=== PATIENT | female | born 1975 | race Caucasian/White ===

== ENCOUNTER → 2023-05-18 10:52 | Outpatient (BNVA) | payer MEDICAID, SELFPAY | PROVIDERS: Visit Provider Physician Assistant ==

== ENCOUNTER 2023-06-15 10:28 | Outpatient (REF) | payer OTHER, SELFPAY ==
[2023-06-19 16:42] LABS: H Pylori Breath Test Negative (Negative)
== END 2023-06-15 10:29 | disposition home or self-care (01) ==
LOC: HO.LNP 10:28
PROVIDERS: Visit Provider Physician Assistant Surgical
DX: E66.01 Morbid (severe) obesity due to excess calories (principal)
CPT/HCPCS: 83013; 99202; 99211

== ENCOUNTER 2023-06-15 10:28 | Outpatient (AMB) | payer OTHER, SELFPAY ==
--- NOTE | 2023-06-15 10:43 | MHC.OFFVISWM ---
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 She heard about our program from her PCP. Her goal is to lose weight and achieve a healthy lifestyle. She reports first being concerned about her weight about 2 years ago, highest weight to date was 227. Her initial weight on presentation to the [facility] clinic on 05/18/23 was 227.4 pounds (entered in error as 220.4) with a BMI of 40.3. Current weight is 215.6 pounds with a BMI of 38.2. She has tried multiple methods of weight loss including fad diets without permanent results. She lives alone. 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 She wakes at:?5 am, and goes to bed at?10 pm. Dinner is at 430 pm. Breakfast: 2 HB eggs w bread or skip AM snack: skip Lunch: skip PM snack: nuts Dinner: rice, beans, chicken After dinner: skip Other snacks: ice cream Liquids: 64 oz water, 6 cans coke daily, rare juice Alcohol/marijuana/tobacco intake: none Exercise: walking, no home equipment and no gym membership GERD score: 0 ANN MARIE score: 0 ESS score: 4 QOL score: 62 PFSH Surgical History Hx of appendectomy Hx of tubal ligation Status post total knee replacement, right Family History Father History of kidney surgery Mother Hypertension Asthma Sister Diabetes Social History Alcohol intake: current Alcohol intake frequency: holidays/special occasions only Patient Tobacco Use Status: Never used Tobacco Review of Systems Const All systems reviewed & are unremarkable except as noted in HPI and below Physical Exam Vital Signs: Last Vital Signs Temp 96.4 F L 06/15/23 10:52 Pulse 67 06/15/23 10:52 BP 129/64 06/15/23 10:52 Pulse Ox 99 06/15/23 10:52 Oxygen Delivery Method Room Air 06/15/23 10:52 BMI result Body Mass Index 38.2 Const General: cooperative, healthy appearing and no acute distress Orientation/consciousness: patient oriented x3 HEENT Head: Yes normal to inspection Ears: hearing grossly normal bilaterally General nose exam: Normal external nose present Face and sinus: Yes normal facial exam Eyes General: appearance normal, both eyes and all related structures Resp Effort & Inspection: normal respiratory effort Auscultation: clear to auscultation bilaterally Cardio Rate: regular rate Rhythm: regular rhythm Heart sounds: S1 normal heart sound present and S2 normal heart sound present GI Inspection: Yes normal to inspection, No distended and Yes obesity Palpation (GI): Soft to palpation, nontender and no guarding Auscultation: normal bowel sounds Skin General skin exam: no rashes or lesions noted Neuro General: patient oriented x3 Extrem General: No edema Psych Appearance: grossly normal Mental Status: mental status grossly normal Speech and movement: Normal speech and movement present Affect: normal affect Attitude: cooperative Assessment & Plan Assessment & Plan (1) Morbid obesity: Code(s): E66.01 - Morbid (severe) obesity due to excess calories Plan: This is a?47 yo female who will start our SWL program to prepare for bariatric surgery.? Blood work, h pylori , CXR, ECG, Abd US and UGI have been ordered. She is being scheduled for RD and BH initial consultations. She will start SWL classes and watch the first three videos before her next appointment. ? Adequate sleep of 7-8 hours per night discussed, awakening at 5 am and going to bed at 10 pm ? Purchase body composition analyzer scale (Sailaja harrington or Jun recommended) and check weight weekly. The best time to do this is first thing in the morning after going to the bathroom. 1. Nutritional counseling: Be sure to careful read the number of scoops per shake Start with 2 Pure Protein shakes ([employer], [employer], [employer]), First shake, (1 scoop in 8 oz low fat unsweetened almond milk or water) at 6am-8am, Second shake (1/2 scoop in 8 oz unsweetened almond milk or water) at 11am-1pm Dinner at 430pm (8 forks of protein and 8 forks of salad/vegetables). Meal to include lean meat (beef, fish, pork, turkey, chicken), cooked vegetables or a salad with olive oil and/or fruits (berries, pears, apples, kiwi). Avoid salt, breads, potatoes, rice, pasta, desserts. 1 protein bar (Zone Perfect bars at [employer], [employer], or [employer]) at 630pm-830pm. Try to drink 64 oz of water daily and avoid soda and juices. ?2. Each shake would be drunk slowly, like coffee in a period of 2 hours. ?3. Cut each bar in 4 pieces and eat each piece in 30 min ?to make each bar last 2 hours. ?4. I emphasized the importance of measuring accurately the food portion and measure it carefully when serving the food on the plate ?5. The meal portions include 8 full-size forks of meat and 8 full-size forks of salad. You always eat the meat portion but you can replace up to half of the forks of salad/vegetables with rice, potatoes or pasta, or a fruit ?if you like. The less you do it the better weight loss will be. ?6. One full-size fork is what can be scooped on the fork without falling aside and not what can be bit with the fork. Use regular forks like those you find in a typical restaurant. ?7.? Please send me weight measurements as soon as possible and then once a week. Always include your diet and exercise plan. Alternatively come weekly at the office for weight checks and send me the measurements. ?8. Exercise counseling: Begin by watching a stretching for beginners video. Start slowly and begin to stretch your muscles. You should do this before and after each exercise session to prevent injury. Please join [employer] [facility] gym near your home. Ask the population health manager or one of the trainers how to use the machines if you are unfamiliar with them. Start elliptical with a resistance of 2. Increase resistance by 1 every 3 min to your most comfortable resistance with a max resistance of 8. Reduce the resistance by 1 every 3 minutes back down to 2 and repeat cycles for 300 calories. Alternatively, start treadmill with a speed of 3.0 and incline of 0, increasing incline by 1 every 3 minutes to the highest comfortable level (max 6 for now) then decrease in the same fashion. Repeat process to a goal of 300 calories. Goal of 2000 calories burned or more weekly. You may also consider use of the stationary bike. The easiest would be to chose the fat-burn or interval training program on the machine and do this until you reach the 300 calorie goal. Alternatively, you can manually adjust the resistance in a similar fashion as mentioned above, (resistance of 2-8 with a goal speed of 12 mph). Tracking calories is essential. 9. Alternatively start walking outside daily, tracking calories with a goal of 300 calories per day, daily. You can download the lindy [employer] which can track your time, distance and calories while walking outside. You press start in the lindy when you start and then stop when you are finished. 10.? It is important to communicate by text with me weekly 11. Please get labs, EKG and chest X-Ray within 1 week. 12. Discussed and answered all questions regarding?obtained consent to participate in the [facility]?Registry. 13. Please follow the diet plan exactly, without any change. If you do not like something about the plan or you feel hungry, you need to communicate with me so I can help you revise the plan. You should not change the plan yourself. Text me at [phone] 14. Goal is to lose at least 12 pounds in the first month 15. Goal is to lose 10% of your weight before surgery, which is about 23 lbs. Ultimate weight goal: 204 lbs before surgery Patient is morbidly obese and is not considered stable at this time.?I spent a total of 70 minutes reviewing/updating records, examining the patient and counseling the patient on weight management as detailed above. Orders: Orders Vitamin B12 and Folate Today E66.01 - Morbid (severe) obesity due to excess calories Comprehensive Met. Panel Today E66.01 - Morbid (severe) obesity due to excess calories C Reactive Protein Today E66.01 - Morbid (severe) obesity due to excess calories Ferritin Today E66.01 - Morbid (severe) obesity due to excess calories Hemoglobin A1c Today E66.01 - Morbid (severe) obesity due to excess calories Insulin Today E66.01 - Morbid (severe) obesity due to excess calories IRON PROFILE Today E66.01 - Morbid (severe) obesity due to excess calories Lipid Panel Today E66.01 - Morbid (severe) obesity due to excess calories PTHI Today E66.01 - Morbid (severe) obesity due to excess calories TSH reflex Free T4 Today E66.01 - Morbid (severe) obesity due to excess calories Vitamin A Today E66.01 - Morbid (severe) obesity due to excess calories Vitamin B1 Today E66.01 - Morbid (severe) obesity due to excess calories Vitamin D 25-OH Total Today E66.01 - Morbid (severe) obesity due to excess calories Zinc Today E66.01 - Morbid (severe) obesity due to excess calories ECG 12 lead EKG Today E66.01 - Morbid (severe) obesity due to excess calories FL upper GI w air Today E66.01 - Morbid (severe) obesity due to excess calories Complete Blood Count Auto Diff Today E66.01 - Morbid (severe) obesity due to excess calories H Pylori Breath Test Today E66.01 - Morbid (severe) obesity due to excess calories US abdomen comp w elastography Today E66.01 - Morbid (severe) obesity due to excess calories XR chest 2V Today E66.01 - Morbid (severe) obesity due to excess calories Referrals Behavioral Health Referral E66.01 - Morbid (severe) obesity due to excess calories Nutrition/Dietitian Referral E66.01 - Morbid (severe) obesity due to excess calories Coding Level of Care Code New Pt Level 5 (03596) Diagnoses Morbid obesity E66.01 Time Spent (min) 70
[2023-06-15 10:52] VITALS: BP 129/64; PULSE 67; TEMP 35.8; O2SAT 99; BMI 38.2
== END 2023-06-15 11:47 | disposition home or self-care (01) ==
PROVIDERS: Visit Provider Physician Assistant Surgical
DX: E66.01 Morbid (severe) obesity due to excess calories (principal); Z68.38 Body mass index [BMI] 38.0-38.9, adult
CPT/HCPCS: 99205

== ENCOUNTER 2023-06-26 09:53 | Outpatient (REF) | payer OTHER, SELFPAY ==
--- NOTE | ~2023-06-26 | US_ITS ---
EXAMINATION: US COMPLETE ABDOMEN WITH LIVER ELASTOGRAPHY CLINICAL INFORMATION: Morbid obesity. COMPARISON: None available. TECHNIQUE: Real-time imaging of the abdominal viscera. Noninvasive ultrasound liver fibrosis assessment is performed using Violet ElastPQ point quantification shear wave elastography (2D-SWE) with a C5-2 MHz transducer. Multiple elastography samples are obtained. FINDINGS: PANCREAS: Normal. The visualized pancreatic head and body are normal in appearance. The remainder of the pancreas is obscured from visualization by the overlying bowel gas. ABDOMINAL AORTA: The proximal, middle, and distal aortic segments are normal in caliber. INFERIOR VENA CAVA: Visualized portions are normal. LIVER: The liver demonstrates normal size, contour and mildly increased echogenicity. No focal lesion or intrahepatic biliary duct dilatation. The right lobe measures 15.5 cm in length. The left lobe measures 9.2 cm in length. Portal flow is towards the liver (hepatopetal). Shear wave liver elastography median stiffness is 2.06 m/s (reference: normal median stiffness is 1.3 m/s or less). IQR/median stiffness to assess sampling precision is 0.04 (reference: good quality data set is IQR/median stiffness of 0.15 or less). GALLBLADDER: Normal. The gallbladder is physiologically distended without evidence of stones, sludge, polyps, wall thickening or pericholecystic fluid. COMMON BILE DUCT: Normal in caliber measuring 0.4 cm in diameter. RIGHT KIDNEY: Normal. No hydronephrosis. No renal calculi or focal parenchymal lesions. The kidney measures 11.5 cm in maximum dimension. LEFT KIDNEY: Normal. No hydronephrosis. No renal calculi or focal parenchymal lesions. The kidney measures 11.1 cm in maximum dimension. SPLEEN: Normal. The spleen measures 10.2 cm in maximum dimension. FREE FLUID: None. US/US abdomen comp w elastography IMPRESSION: 1. There is mild generalized increase in hepatic echotexture, consistent with fatty infiltration or hepatocellular disease. Please correlate clinically. No focal hepatic mass or intrahepatic biliary dilatation is seen. 2. Liver elastography: Measurements are suggestive of compensated advanced chronic liver disease but need further test for confirmation. REFERENCE: Society of Radiologists in Ultrasound Liver Stiffness Thresholds (2020): LIVER STIFFNESS THRESHOLDS: *Liver Stiffness equal or less than 1.3 m/s: High probability of being normal. *Liver Stiffness less than 1.7 m/s: In the absence of other known clinical signs, rules out compensated advanced chronic liver disease. *Liver Stiffness 1.7-2.1 m/s: Suggestive of compensated advanced chronic liver disease but need further test for confirmation. *Liver Stiffness over 2.1 m/s: Rules in compensated advanced chronic liver disease. *Liver Stiffness over 2.4 m/s: Suggestive of clinically significant portal hypertension. QUALITY OF DATA SET: *IQR/Median value equal or less than 0.15 implies a quality data set. *IQR/Median value over 0.15 implies a poor quality data set. SIGNIFICANT CHANGE FROM PRIOR EXAM: Significant change if liver stiffness measurement is 10% or greater from prior exam. OTHER CONSIDERATIONS: The stage of liver fibrosis may be overestimated in the setting of acute hepatitis, liver inflammation, elevated liver function tests, hepatic vascular congestion, obstructive cholestasis, non-fasting state, and infiltrative diseases such as amyloidosis and lymphoma. In some patients with NAFLD, the liver stiffness thresholds for compensated advanced chronic liver disease may be lower. In causes other than viral hepatitis and NAFLD, liver stiffness thresholds are not well established.
== END 2023-06-26 09:54 | disposition home or self-care (01) ==
LOC: HO.US 09:53
PROVIDERS: PCP Internal Medicine; Visit Provider Physician Assistant Surgical
DX: E66.01 Morbid (severe) obesity due to excess calories (principal)
CPT/HCPCS: 76705; 76981

== ENCOUNTER 2023-06-29 12:00 | Outpatient (AMB) | payer OTHER, SELFPAY ==
--- NOTE | 2023-06-29 12:04 | A.OFFWM_ITS ---
Intake Intake Visit Reasons: VIDEO BH Intake Allergies No Known Allergies [No Known Allergies*] Allergy (Verified 06/15/23 10:50) PFSH Surgical History Hx of appendectomy Hx of tubal ligation Status post total knee replacement, right Family History Father History of kidney surgery Mother Hypertension Asthma Sister Diabetes Social History Alcohol intake: current Alcohol intake frequency: holidays/special occasions only Patient Tobacco Use Status: Never used Tobacco Behavioral Health Assessment Weight Management Therapy Therapy Notes Details Pt is a 47 year old female, who presents for initial behavioral health assessment as part of surgical weight-loss program. PT denied any history of mental health treatment and or past hospitalization/crisis for behavioral health. Denies any safety concerns around SI and/or self-other harm, also there is no history of substance use reported. There is also no evidence for stress/emotional-eating, and scores from BES suggest minimal risk for binge eating behavior. PHQ- scores also showed no active symptoms/concerns with depression. Mental status exam is withing normal limits, suggesting person's functioning is not impaired. At this time patient is cleared from the behavioral health standpoint. Presenting Concerns Referral Source WMP Provider. Pt sees MANDIE Rodriguez. Referred to [facility] by PCP @[facility]. Reason for referral Completion of behavioral health assessment as part of process for weight-loss surgery. Precipitating Event Obesity. Living Situation Current Living Situation Rent At risk of losing current housing? No Satisfied with current living situation? Yes Comments PT lives alone. Food/Weight/Diet Expectations of change Initial goal is to lose 10% of her weight before surgery , which is about 23 lbs. Ultimate weight goal: 204 lbs. before surgery History/Relationship with food Used to drink a lot of soda, diet was /Justine-Rican style (rice, beans, plantains, pork) and used to skip breakfast and lunch when working. Example of meals: Breakfast: skip when working/days off 2 eggs/bread/coffee Lunch : Skip always. Dinner: Rice, rehman, meat. Weekends would have take-off (Somali, pizza, fast food). . PT denies any concern with emotional eating and reports been doing well with current meal plan. History/Relationship with weight Was on healthy weight as a kid. Started gaining weight slowly the past 20 years. Last year realized weight was out of control. Max weight: 220. History/Relationship with dieting Tried cutting carbs, Herbalife for 6 months, teas, OTC pills Tried a method for couple months but after discontinuing she gains more than what she lost. Started WMP in 06/15 (2 weeks ago) Binge Eating Do you frequently eat large amounts of food in short periods of time, not feeling physically hungry? Yes Do you feel out of control when you eat a large amount of food in a short period of time? No Do you eat large amounts of food rapidly and typically alone? Yes Night Eating Do you wake up at least once during the night to eat? No If you wake up in the night, do you find that it is necessary to eat something in order to fall back asleep? No Do you have little or no appetite in the morning and feel very hungry in the evening, often overeating between dinner and when you go to bed? Yes Social History Family history and relationship Never . 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 PT has 2 adult daughters (30 and 27 y/o). She has 2 grandkids. Has 5 siblings. Parents are alive, living in [place]. PT reports good family relationships, very close to her daughters. 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 Developmental history and status None reported. Social support Daughters, boyfriend, family, some friends. Community support PCP. Restorationism/Spirituality Raised as Orthodoxy, but not active. Cultural/Ethnic information Born in [place]. Lives in [place] 33 years ago. Mainly Kazakh-speaking. Legal Involvement and History Current or historical involvement with the legal system? None reported. Education Highest grade completed 12th grade. Graduated HS. 1 college semester. Currently enrolled in educational program? No Interested in further educational program? No Educational Interests/Skills Cooking, sewing. 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 No Meaningful activities Family activities, sewing. Financial Situation Describe current financial situation Comfortable Service Service? No Mental Health and Addiction Treatment Current/Past substance abuse? No Comments Drinks alcohol on social events, max 1-3 drinks. Current/Past addictive behavior concerns? No Psychiatric history Never been in counseling and/or been prescribed psychiatric medication. Denies SI and/or any concern around self/other-harm. Medical and Physical Health Summary Additional Medical History not covered in history None reported. Sexual History concerns None reported. Physical exam in the last year? Yes Pain Screening Current pain? Yes Pain in the last few months? Yes Comments Due to arthritis. Medications Is the patient compliant with medications? Yes Does the patient have Flannery Guardian in place? Not applicable Does the patient use complimentary health approaches? No Trauma/Abuse History History of trauma? No Questionnaires PHQ-9 Over the last 2 weeks, how often have you been bothered by any of the following problems? 1. Little interest or pleasure in doing things: not at all 2. Feeling down, depressed, or hopeless: not at all 3. Trouble falling or staying asleep, or sleeping too much: not at all 4. Feeling tired or having little energy: several days 5. Poor appetite or overeating: not at all 6. Feeling bad about yourself - or that you are a failure or have let yourself or your family down: not at all 7. Trouble concentrating on things, such as reading the newspaper or watching television: not at all 8. Moving or speaking so slowly that other people could have noticed. Or the opposite - being so fidgety or restless that you have been moving around a lot more than usual: not at all 9. Thoughts that you would be better off or of hurting yourself in some way: not at all Total score: 1 Depression Screening Interpretation: Negative 11174 - PHQ-9 Billing: Yes Source: Developed by Drs. Manuel Tobar, Mariely Nye, Dominguez Abarca and colleagues, with an educational isis from [employer]. Binge Eating Scale Group 1 A. I don't feel self-conscious about my wt. or body size when I'm with others. B. I feel concerned about how I look to others, but it normally does not make me fell disappointed with myself C. I do get self-conscious about my appearance and wt. which makes me feel disappointed in myself. D. I feel very self-conscious about my wt. and frequently I feel intense shame and disgust for myself. I try to avoid social contacts because of my self- consciousness. Response Group 1: C Group 2 A. I don't have any difficulty eating slowly in the proper manner. B. Although I seem to gobble down foods, I don't end up feeling stuffed because of eating to much. C. At times, I tend to eat quickly and then, I feel uncomfortably full afterwards. D. I have the habit of bolting down my food, without really chewing it. When this happens I usually feel uncomfortably stuffed because I've eaten to much. Response Group 2: A Group 3 A. I feel capable to control my eating urges when I want to. B. I feel like I have failed to control my eating more than the average person. C. I feel utterly helpless when it comes to feeling in control of my eating urges. D. Because I feel so helpless about controlling my eating I have become very desperate about trying to get control. Response Group 3: D Group 4 A. I don't have the habit of eating when I'm bored. B. I sometimes eat when I'm bored, but often I'm able to get busy and get my mind off food. C. I have a regular habit of eating when I'm bored, but occasionally, I can use some other activity to get my mind off eating. D. I have a strong habit of eating when I'm bored. Nothing seems to help me breath the habit. Response Group 4: A Group 5 A. I'm usually physically hungry when I eat something. B. Occasionally, I eat something on impulse even though I really am not hungry. C. I have the regular habit of eating foods, that I might not really enjoy, to satisfy a hungry feeling even though physically, I don't need the food. D. Although I'm not physically hungry, I get a hungry feeling in my mouth that only seems to be satisfied when I eat a food, like sandwich, that fills my mouth. Sometimes, when I eat the food to satisfy my mouth hunger, I then spit the food out so I won't gain weight. Response Group 5: A Group 6 A. I don't feel any guilt or self-hate after I overeat. B. After I overeat, occasionally I feel guilt or self-hate. C. Almost all the time I experience strong guilt or self-hate after I overeat. Response Group 6: B Group 7 A. I don't lose total control of my eating when dieting even after periods when I overeat. B. Sometimes when I eat a forbidden food on a diet, I feel like I blew it and eat even more. C. Frequently, I have the habit of saying to myself, I've blown it now, why not go all the way, when I overeat on a diet. When that happens I eat more. D. I have a regular habit of starting a strict diets for myself but I break the diets by going on an eating binge. My life seems to be either a feast or famine. Response Group 7: A Group 8 A. I rarely eat so much food that I feel uncomfortably stuffed afterwards. B. Usually about once a month, I each such a quantity of food, I end up feeling very stuffed. C. I have regular periods during the month when I eat large amounts of food, eit her at mealtime or at snacks. D. I eat so much food that I regularly feel quite uncomfortable after eating and sometimes a bit nauseous. Response Group 8: A Group 9 A. My level of calorie intake does not go up very high or go down very low on a regular basis. B. Sometimes after I overeat, I will try to reduce my caloric intake to almost nothing to compensate for the excess calories I've eaten. C. I have a regular habit of overeating during the night. It seems that my routine is not to be hungry in the morning but overeat in the evening. D. In my adult years, I have had week-long periods where I practically starve myself. This follows periods when I overeat. It seems I live a life of either feast or famine. Response Group 9: D Group 10 A. I usually am able to stop eating when I want to. I know when enough is enough. B. Every so often, I experience a compulsion to eat which I can't seem to control. C. Frequently, I experience strong urges to eat which I seem unable to control, but at other times I can control my eating urges. D. I feel incapable of controlling urges to eat. I have a fear of not being able to stop eating voluntarily. Response Group 10: A Group 11 A. I don't have any problem stopping eating when I feel full. B. I usually can stop eating when I feel full but occasionally overeat leaving me feeling uncomfortably stuffed. C. I have a problem stopping eating once I start and usually I feel uncomfortably stuffed after I eat a meal. D. Because I have a problem not being able to stop eating when I want, I sometimes have to induce vomiting to relieve my stuffed feeling. Response Group 11: A Group 12 A. I seem to eat just as much when I'm with others, Family social gatherings as when I'm by myself. B. Sometimes, when I'm with other persons, I don't eat as much as I want to eat because I'm self-conscious about my eating. C. Frequently, I eat only a small amount of food when others are present, because I'm very embarrassed about my eating. D. I feel so ashamed about overeating that I pick times to overeat when I know no one will see me. I feel like a closet eater. Response Group 12: A Group 13 A. I eat three meals a day with only an occasional between meal snack. B. I eat 3 meals a day, but I also normally snack between meals. C. When I am snacking heavily, I get in the habit of skipping regular meals. D. There are regular periods when I seem to be continually eating, with no planned meals. Response Group 13: A Group 14 A. I don't think much about trying to control unwanted eating urges. B. At least some of the time, I feel my thoughts are pre-occupied with trying to control my eating urges. C. I feel that frequently I spend much time thinking about how much I ate or about trying not to eat anymore. D. It seems to me that most of my waking hours are pre-occupied by thoughts about eating or not eating. I feel like I'm constantly struggling not to eat. Response Group 14: B Group 15 A. I don't think about food a great deal. B. I have strong craving for food but they last only for brief periods of time. C. I have days when I can't seem to think about anything else but food. D. Most of my days seem to be pre-occupied with thoughts about food. I feel like I live to eat. Response Group 15: A Group 16 A. I usually know whether or not I'm physically hungry. I take the right portion of food to satisfy me. B. Occasionally, I feel uncertain about knowing whether or not I'm physically hungry. A these times it's hard to know how much food I should take to satisfy me. C. Even though I might know how many calories I should eat, I don't have any idea what is a normal amount of food for me. Response Group 16: A Binge Eating Score: 10 Score less than 17 Minimal Risk Score between 18-26 Moderate Risk Score between 27-46 High Risk Assessment & Plan Assessment & Plan (1) Eating disorder: Code(s): F50.9 - Eating disorder, unspecified Qualifiers: Eating disorder type: unspecified eating disorder Qualified Code(s): F50.9 - Eating disorder, unspecified Plan After completing the assessment and comparing scores from Binge eating scale and PHQ9, at this time, this curriculum writer has no concerns about her mental status. Client is cleared and there is no need for follow up. Clinician has advised client about available resources if ever in need to access additional support and has encourage client to participate in post-op groups. Telehealth Telehealth Location of provider rendering services: other ([facility]. [place], [place] Location of patient: address on file Patient Identification confirmed using: Name, : Yes Telehealth method: video Patient verbally consented to treatment: Yes Patient verbally consented to billing insurance company: Yes Patient informed of any privacy concerns related to visit: Yes Minutes spent on Phone/Video with Pt.: 60 Coding Level of Care Code New Pt Tele Psy Diag Shraddhaal ([id number]) Patient Type New Diagnoses Eating disorder F50.9 Eating disorder type: unspecified eating disorder Time Spent (min) 60
== END 2023-06-29 13:05 | disposition home or self-care (01) ==
LOC: HO.HBST 12:05
PROVIDERS: PCP Internal Medicine; Visit Provider Counselor Mental Health
DX: F50.9 Eating disorder, unspecified (principal)
CPT/HCPCS: 90791

== ENCOUNTER → 2023-06-29 12:00 | Outpatient (BNVA) | payer OTHER, SELFPAY | PROVIDERS: PCP Internal Medicine; Visit Provider Counselor Mental Health ==

== ENCOUNTER 2023-07-08 08:44 | Outpatient (AMB) | payer OTHER, SELFPAY ==
--- NOTE | 2023-07-08 08:33 | A.OFFVIS_ITS ---
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 Instead eats cheese or berries. She likes wallisian yogurt and cottage cheese . I sent list dinner chicken with green beans, zucchini drinks water all day, no sugar sweetened beverages Exercise: walking 30 minutes daily SWL online classes: none, pt was never enrolled Previous weight loss methods attempted Tried cutting carbs, Herbalife for 6 months, teas, OTC pills Tried a method for couple months but after discontinuing she gains more than what she lost. Dietary counseling reduction Who buys your food self Who prepares/cooks your food self Meal frequency regular: dinner (rice, beans, meat ) and never: breakfast and lunch Diagnosis Nutrition problem #1 overweight/obesity As related to (etiology) #1 excess energy intake and physical inactivity As evidenced by (sign/symptom) #1 high BMI Monitoring/Goals Nutrition problem monitoring total energy intake, level of knowledge/skill, total PRO intake, total CHO intake and weight Outcome progress progressing Learning/Education Readiness to learn excellent Stages of change action Most Recent Diabetes Results: No Data to Display PFSH Surgical History Hx of appendectomy Hx of tubal ligation Status post total knee replacement, right Family History Father History of kidney surgery Mother Hypertension Asthma Sister Diabetes Social History Alcohol intake: current Alcohol intake frequency: holidays/special occasions only Patient Tobacco Use Status: Never used Tobacco Assessment & Plan Assessment & Plan (1) Obesity (BMI 30-39.9): Code(s): E66.9 - Obesity, unspecified Patient Instructions: She is off to a good start, but not getting enough protein. In place of bar, can do wallisian yogurt or cottage cheese, also sent list of other bars. Complete online classes, enrolled her today. F/u when completed - 07/31 8:30am she will likely be a good candidate when ready Telehealth Telehealth Location of provider rendering services: practice address Location of patient: address on file Patient Identification confirmed using: Name, : Yes Telehealth method: voice only Patient verbally consented to treatment: Yes Patient verbally consented to billing insurance company: Yes Patient informed of any privacy concerns related to visit: Yes Minutes spent on Phone/Video with Pt.: 30 Coding Level of Care Code Nutr Indiv Intake (71421) Diagnoses Obesity (BMI 30-39.9) E66.9 Time Spent (min) 30
[2023-07-08 08:40] VITALS: BMI 37.6
== END 2023-07-08 08:56 | disposition home or self-care (01) ==
LOC: HO.HBS 08:44
PROVIDERS: PCP Internal Medicine; Visit Provider Dietitian, Registered
DX: E66.9 Obesity, unspecified (principal)

== ENCOUNTER → 2023-07-08 08:44 | Outpatient (BNVA) | payer OTHER, SELFPAY | PROVIDERS: PCP Internal Medicine; Visit Provider Dietitian, Registered | DX: E66.9 Obesity, unspecified (principal); Z68.37 Body mass index [BMI] 37.0-37.9, adult; Z71.3 Dietary counseling and surveillance | CPT/HCPCS: 97802 ==

== ENCOUNTER 2023-07-20 11:16 | Outpatient (REF) | payer OTHER, SELFPAY ==
--- NOTE | ~2023-07-20 | XR_ITS ---
EXAMINATION: XR CHEST CLINICAL INFORMATION: Morbid obesity due to excess calories COMPARISON: 01/25/2017 TECHNIQUE: 2 views of the chest were obtained. FINDINGS: There is no gross pneumothorax. Heart size is normal. No pleural effusion. No new focal consolidation to suggest pneumonia. Mild degenerative changes in the thoracic spine. XR/XR chest 2V IMPRESSION: No evidence of pneumonia.
--- NOTE | 2023-07-20 12:42 | ECG_ITS ---
Test Reason : morbid obesity Blood Pressure : / mmHG Vent. Rate : 059 BPM Atrial Rate : 059 BPM P-R Int : 148 ms QRS Dur : 082 ms QT Int : 416 ms P-R-T Axes : 022 031 022 degrees QTc Int : 411 ms Sinus bradycardia Otherwise normal ECG When compared with ECG of 23-MAY-2015 20:23, Heart rate has decreased Referred By: Vinnie Crabtree Electronically Signed By:CATHY ZAPATA
[2023-07-20 12:49] LABS: MANUAL DIFF FLAG NO
[2023-07-20 13:03] LABS: Basophils Absolute Auto 0.1 X10*3/uL (0.0-0.2); Basophils Percent Auto 0.7 % (0-2); Eosinophils Absolute Auto 0.2 X10*3/uL (0.0-0.4); Eosinophils Percent Auto 2.4 % (0-4); Hemoglobin 13.9 g/dl (12.0-16.0); Imm Gran Abs Auto 0.02 X10*3/uL (0.00-0.03); Imm Gran Pct Auto 0.3 % (0.0-0.4); Lymphocytes Absolute Auto 1.6 X10*3/uL (1.2-4.9); Lymphocytes Percent Auto 23.4 % (20-40); Mean Corpuscular HGB Conc 33.1 g/dl (31.0-35.0); Mean Corpuscular Hemoglobin 29.8 pg (27.0-33.0); Mean Corpuscular Volume 90.1 fL (80.0-98.0); Mean Platelet Volume 9.7 fL (9.4-12.3); Monocytes Absolute Auto 0.7 X10*3/uL (0.1-1.2); Monocytes Percent Auto 9.9 % (2-11); Neutrophils Absolute Auto 4.4 x10*3/uL (2.0-8.3); Neutrophils Percent Auto 63.3 % (45-73); Platelet Count 315 X10*3/uL (160-400); Red Blood Count 4.66 X10*6/uL (4.20-5.50); Red Cell Distribution Width 11.6 % (11.0-16.0)
[2023-07-20 13:56] LABS: Estimated Average Glucose 114 mg/dL; Hemoglobin A1c % 5.6 % (<6.0)
[2023-07-20 15:10] LABS: Alanine Aminotransferase 163 U/L (0-31); Alkaline Phosphatase 85 U/L (39-117); Anion Gap 9 (12-20); Aspartate Amino Transferase 101 U/L (5-31); Bilirubin Total 0.5 mg/dL (0.0-1.0); Blood Urea Nitrogen 17 mg/dL (9-16); C Reactive Protein 0.65 mg/dL (< or = 0.50); Calcium 10.1 mg/dL (8.4-10.2); Carbon Dioxide 26 mmol/L (22-29); Chloride 107 mmol/L (96-108); Cholesterol 230 mg/dL (<200); Estimated Glomerular Filt Rate > 60; Glucose Random 89 mg/dL (60-115); HDL Cholesterol 35 mg/dL (>40); Iron 153 mcg/dL (30-160); LDL Cholesterol Calculated 154 mg/dL (<100); Percent Iron Saturation 50 % (15-50); Potassium 3.7 mmol/L (3.3-5.1); Sodium 138 mmol/L (135-145); Total Iron Binding Capacity 303 mcg/dL (228-428); Total Protein 7.2 g/dL (6.5-8.0); Triglycerides 207 mg/dL (<150); Unsaturated Iron Binding 150 ug/dL
[2023-07-20 15:15] LABS: Ferritin 223 ng/mL (10-250); Insulin 27 uU/mL (2-29); Vitamin D 25-OH Total 37.8 ng/mL (>30)
[2023-07-20 15:17] LABS: Folate 11.2 ng/mL (> or = 4.0); Vitamin B12 427 pg/mL (200-900)
[2023-07-20 16:02] LABS: Free T4 (Free Thyroxine) 1.23 ng/dL (0.71-1.85)
[2023-07-21 16:14] LABS: PTHI 21 pg/mL (16-77)
[2023-07-24 01:29] LABS: Zinc 69 mcg/dL (60-130)
[2023-07-24 02:53] LABS: Vitamin A 30 mcg/dL (38-98)
[2023-07-26 12:02] LABS: Vitamin B1 6 nmol/L (8-30)
== END 2023-07-20 11:17 | disposition home or self-care (01) ==
LOC: HO.LAB 11:16
PROVIDERS: PCP Internal Medicine; Visit Provider Physician Assistant Surgical
DX: E66.01 Morbid (severe) obesity due to excess calories (principal); Z71.3 Dietary counseling and surveillance; Z68.41 Body mass index [BMI] 40.0-44.9, adult
CPT/HCPCS: 36415; 71046; 80053; 80061; 82306; 82607; 82728; 82746; 83036; 83525; 83540; 83970; 84425; 84439; 84443; 84590; 84630; 85025; 86140; 93005; 99212

== ENCOUNTER 2023-07-20 11:16 | Outpatient (AMB) | payer OTHER, SELFPAY ==
--- NOTE | 2023-07-20 11:18 | MHC.OFFVISWM ---
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 They were last seen in the office on 06/1423, recorded weight at that time was 215.6 pounds, with a BMI of 38.2. Today's weight is 210.2 pounds and BMI is 37.2. There has been a weight loss of 17.2 pounds since initiating the surgical weight loss program on 05/18/23 with a total body weight loss of 7.5 %. Pre op work up completed as follows: SWL classes:? 12/10 BH appts: cleared 06/29/23? ? RD appts: f/u 07/31/23 Labs: not yet done H. pylori: 06/15/23-neg CXR: not yet done EKG: not yet done ABD U/S: 06/26/23-fatty liver UGI: 08/07/23 The patient reports she is doing well and is very proud of her weight loss. She has removed soda and is following the meal plan. Current meal plan includes: 2 Pure Protein shakes (Target, Big Y, [employer]), First shake, (1 scoop in 8 oz low fat unsweetened almond milk or water) at 6am-8am, Second shake (1/2 scoop in 8 oz unsweetened almond milk or water) at 11am-1pm Dinner at 430pm (7 forks of protein and 7 forks of salad/vegetables). 1 protein bar (Think bars) at 630pm-830pm. Drinking 64 oz of water Current exercise plan includes: walking outside, 3 days per week. not tracking calories exercise videos at home 20-30 minutes daily PFSH Surgical History Status post total knee replacement, right Hx of tubal ligation Hx of appendectomy Family History Father History of kidney surgery Mother Hypertension Asthma Sister Diabetes Social History Alcohol intake: current Alcohol intake frequency: holidays/special occasions only Patient Tobacco Use Status: Never used Tobacco Physical Exam Vital Signs: Last Vital Signs Temp 97.8 F 07/20/23 11:23 Pulse 82 07/20/23 11:23 BP 135/63 07/20/23 11:23 Pulse Ox 96 07/20/23 11:23 Oxygen Delivery Method Room Air 07/20/23 11:23 BMI result Body Mass Index 37.2 Assessment & Plan Assessment & Plan (1) Obesity with body mass index (BMI) of 30.0 to 39.9: Code(s): E66.9 - Obesity, unspecified Plan: change meal plan slightly to : 2 Pure Protein shakes (Target, Big Y, [employer]S), First shake, (1/2 scoop in 8 oz low fat unsweetened almond milk or water) at 6am-8am, Second shake (1/2 scoop in 8 oz unsweetened almond milk or water) at 11am-1pm Dinner at 430pm (7 forks of protein and 7 forks of salad/vegetables). 1 protein bar (Fit Crunch bars) at 630pm-830pm. Encouraged to join gym, offered discount to [employer] but she states her dtr goes to [employer] Reminded of upcoming appts and encouraged to get labs/cxr/ekg done. rtc 3 weeks Coding Level of Care Code Est Pt Level 3 (68432) Diagnoses Obesity with body mass index (BMI) of 30.0 to 39.9 E66.9
[2023-07-20 11:23] VITALS: BP 135/63; PULSE 82; TEMP 36.6; O2SAT 96; BMI 37.2
== END 2023-07-20 11:41 | disposition home or self-care (01) ==
PROVIDERS: Visit Provider Physician Assistant Surgical
DX: E66.9 Obesity, unspecified (principal); Z68.37 Body mass index [BMI] 37.0-37.9, adult
CPT/HCPCS: 99213

== ENCOUNTER 2023-08-07 08:30 | Outpatient (REF) | payer OTHER, SELFPAY | END 2023-08-07 08:31 | disposition home or self-care (01) | LOC: HO.XRAY 08:30 | PROVIDERS: PCP Internal Medicine; Visit Provider Physician Assistant Surgical | DX: E66.01 Morbid (severe) obesity due to excess calories (principal) | CPT/HCPCS: 74246 ==

== ENCOUNTER → 2023-08-07 08:31 | Outpatient (BNV) | payer OTHER, SELFPAY | PROVIDERS: PCP Internal Medicine; Visit Provider Radiology Diagnostic Radiology | DX: Z01.818 Encounter for other preprocedural examination (principal); E66.01 Morbid (severe) obesity due to excess calories | CPT/HCPCS: 74246 ==

== ENCOUNTER 2023-08-24 12:53 | Outpatient (AMB) | payer OTHER, SELFPAY ==
--- NOTE | 2023-08-24 13:32 | AM.OFFWIN_ITS ---
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 Intake Note: pt is here for c/o right eye redness with some itchiness denies vision change Patient Tobacco Use Status: Never used Tobacco Allergies No Known Allergies [No Known Allergies*] Allergy (Verified 08/24/23 14:12) Medication List - Last Reconciled 08/24/23 by Alpesh Murray MD levothyroxine 100 mcg PO DAILY thiamine HCl (vitamin B1) 100 mg PO DAILY 90 days vitamin A palmitate 3,000 mcg PO DAILY 90 days Do you need a note to return to daycare/school/sports/work: Yes HPI 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 Patient is reporting symptoms of a pinkeye. Redness in the right eye since yesterday. Minimal purulent discharge. Does not wear contact lenses. [facility] Surgical History Status post total knee replacement, right Hx of tubal ligation Hx of appendectomy Family History Father History of kidney surgery Mother Hypertension Asthma Sister Diabetes Social History Alcohol intake: current Alcohol intake frequency: holidays/special occasions only Patient Tobacco Use Status: Never used Tobacco Physical Exam Vital Signs: Last Vital Signs Temp 97.2 F 08/24/23 13:34 Pulse 71 08/24/23 13:34 BP 132/70 08/24/23 13:34 Pulse Ox 96 08/24/23 13:34 BMI result Body Mass Index 37.6 Eyes Other: Right eye: No digital tenderness. Lower eyelid: Erythematous with tiny ulcer in the tarsal conjunctiva. Corneas clear. Anterior chambers clear. Assessment & Plan Assessment & Plan (1) Conjunctivitis: Code(s): H10.9 - Unspecified conjunctivitis Plan: Erythromycins ophthalmic ointment prescribed. If symptoms do not improve to follow-up here. Coding Level of Care Code Est Pt Level 3 (68121) Diagnoses Conjunctivitis H10.9
[2023-08-24 13:34] VITALS: BP 132/70; PULSE 71; TEMP 36.2; O2SAT 96; BMI 37.6
== END 2023-08-24 14:22 | disposition home or self-care (01) ==
PROVIDERS: PCP Internal Medicine; Visit Provider Internal Medicine
DX: H10.9 Unspecified conjunctivitis (principal)
CPT/HCPCS: 99213

== ENCOUNTER 2023-09-07 08:06 | Outpatient (AMB) | payer OTHER, SELFPAY ==
--- NOTE | 2023-09-07 08:14 | MHC.OFFVISWM ---
Intake VS Expanded 09/07/23 08:21 BP 128/79 Blood Pressure Location Rt brachial Blood Pressure Position Sitting Pulse 75 Pulse Source Pulse Oximeter Temp 97.8 F Temperature Source Temporal Artery Scan Pulse Oximetry 95 Oxygen Delivery Method Room Air Height 5 ft 3 in Weight 204 lb 3.2 oz BMI 36.2 Body Fat % 42.9 Body Fat Mass 87.6 Fat Free Mass 116.6 Visceral Fat Rating 11.0 Body Water % 40.8 Body Water Mass 83.4 Muscle Mass/Score 110.6 Basal Metabolic Rate/Score 1,628 Intake Visit Reasons: (OV) F/U SWL Communications Professor Required: Yes Communications Professor Name: office cmi Allergies No Known Allergies [No Known Allergies*] Allergy (Verified 09/07/23 08:17) Medication List - Last Reconciled 09/07/23 by MANDIE Donald levothyroxine 125 mcg PO DAILY thiamine HCl (vitamin B1) 100 mg PO DAILY 90 days vitamin A palmitate 3,000 mcg PO DAILY 90 days HPI HPI Comments History of Present Illness Details The patient is a pleasant 47 year old female who returns to the clinic for pre-operative surgical weight loss management. They were last seen in the office on 07/20/23, recorded weight at that time was 210.2 pounds, with a BMI of 37.2. Today's weight is 204.2 pounds and BMI is 36.2. There has been a weight loss of 23.2 pounds since initiating the surgical weight loss program on 05/18/23 with a total body weight loss of 10.2 %. Pre op work up completed as follows: SWL classes:? 12/10 BH appts: cleared 06/29/23? ? RD appts: f/u 07/31/23 Labs: not yet done H. pylori: 06/15/23-neg CXR: not yet done EKG: not yet done ABD U/S: 06/26/23-fatty liver UGI: 08/07/23 The patient reports she is doing well but feels as though she is stuck at her weight. She also spoke w her PCP about her TSH and her dose was increased to 125 mcg daily except thursday. Current meal plan includes: 2 Pure Protein shakes ([employer], [employer], [employer]), First shake, (1/2 scoop in 8 oz low fat unsweetened almond milk or water) at 6am-8am, Second shake (1/2 scoop in 8 oz unsweetened almond milk or water) at 11am-1pm Dinner at 430pm (7 forks of protein and 7 forks of salad/vegetables). 1 protein bar (Fit Crunch bars) at 630pm-830pm. Current exercise plan includes: States she has been watching her grandchild and has been unable to go to the gym, considering buying a treadmill Given form for discount to [facility] walking outside, 3 days per week. not tracking calories exercise videos at home 20-30 minutes daily PFSH Surgical History Status post total knee replacement, right Hx of tubal ligation Hx of appendectomy Family History Father History of kidney surgery Mother Hypertension Asthma Sister Diabetes Social History (Updated 09/07/23 @ 08:17 by Ericka Hebert CMA) Alcohol intake: former Patient Tobacco Use Status: Never used Tobacco Review of Systems Const All systems reviewed & are unremarkable except as noted in HPI and below Physical Exam Vital Signs: Last Vital Signs Temp 97.8 F 09/07/23 08:21 Pulse 75 09/07/23 08:21 BP 128/79 09/07/23 08:21 Pulse Ox 95 09/07/23 08:21 Oxygen Delivery Method Room Air 09/07/23 08:21 BMI result Body Mass Index 36.2 Const General: healthy appearing and no acute distress Resp Effort & Inspection: normal respiratory effort Auscultation: clear to auscultation bilaterally Cardio Rate: regular rate Rhythm: regular rhythm GI Auscultation: normal bowel sounds Extrem General: Yes normal to inspection Assessment & Plan Assessment & Plan (1) Obesity with body mass index (BMI) of 30.0 to 39.9: Code(s): E66.9 - Obesity, unspecified Plan: Discussed the critical element of exercise. She was given a paper for discount to [facility]. She additionally endorses she is considering buying a treadmill for home use as she is very busy watching her grandchild. She was reminded of her follow-up with Lona on 09/11/2023. She has achieved a 10% total body weight loss and will be referred to Dr. Agustin for further preoperative planning. Coding Level of Care Code Est Pt Level 3 (50685) Diagnoses Obesity with body mass index (BMI) of 30.0 to 39.9 E66.9
[2023-09-07 08:21] VITALS: BP 128/79; PULSE 75; TEMP 36.6; O2SAT 95; BMI 36.2
== END 2023-09-07 08:58 | disposition home or self-care (01) ==
PROVIDERS: Visit Provider Physician Assistant Surgical
DX: E66.9 Obesity, unspecified (principal); Z68.36 Body mass index [BMI] 36.0-36.9, adult
CPT/HCPCS: 99213

== ENCOUNTER → 2023-09-07 08:06 | Outpatient (BNVA) | payer OTHER, SELFPAY | PROVIDERS: Visit Provider Physician Assistant Surgical | DX: E66.9 Obesity, unspecified (principal); Z68.36 Body mass index [BMI] 36.0-36.9, adult | CPT/HCPCS: 99212 ==

== ENCOUNTER 2023-09-28 08:06 | Outpatient (AMB) | payer OTHER, SELFPAY ==
--- NOTE | 2023-09-28 08:08 | MHC.OFFVISWM ---
Intake VS Expanded 09/28/23 08:14 BP 129/63 Blood Pressure Location Rt brachial Blood Pressure Position Sitting Pulse 63 Pulse Source Pulse Oximeter Temp 96.5 F L Temperature Source Temporal Artery Scan Pulse Oximetry 94 Oxygen Delivery Method Room Air Height 5 ft 3 in Weight 207 lb 6.4 oz BMI 36.7 Body Fat % 42.0 Body Fat Mass 87.0 Fat Free Mass 120.2 Visceral Fat Rating 11.0 Body Water % 41.3 Body Water Mass 85.6 Muscle Mass/Score 114.0 Basal Metabolic Rate/Score 1,666 Intake Visit Reasons: (OV) F/U SWL (Vinnie) Fundraising Specialist Required: Yes Fundraising Specialist Language: Quality Assurance Engineer Name: Viji Information Interpreted: clinical only Training And Development Director: Training And Development Director Present Allergies No Known Allergies [No Known Allergies*] Allergy (Verified 09/28/23 08:16) Medication List - Last Reconciled 09/28/23 by Geovanni Agustin MD, FACS, FASMBS levothyroxine 125 mcg PO DAILY thiamine HCl (vitamin B1) 100 mg PO DAILY 90 days vitamin A palmitate 3,000 mcg PO DAILY 90 days HPI HPI Comments History of Present Illness Details The patient is a pleasant 47 year old female who returns to the clinic for pre-operative surgical weight loss management. She was last seen in the office on 08/07/23. Her comorbidities include hypercholesterolemia, fatty liver disease with elevation of her AST and ALT with liver fibrosis demonstrated on ultrasound, Today's weight is 207.4 pounds and BMI is 36.7. There has been a weight loss of 21.3 pounds since initiating the surgical weight loss program on 05/18/23 with a total body weight loss of 10 %. 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 Abdominal surgery includes tubal ligation and an appendectomy; right TKR has also been done. Pre op work up completed as follows: SWL classes:? 06/09 BH appts: cleared 06/29/23? ? RD appts: cleared Labs: Low Vit A & B1 replaced; Transaminases elevated. Cholesterol is elevated at 230,TAGs elevated at 207 H. pylori: 06/15/23-neg CXR: NAD EKG: sinus yonis ABD U/S: 06/26/23-fatty liver UGI: No HH, nor GERD The patient reports she is doing well but feels as though she is stuck at her weight. She also spoke w her PCP about her TSH and her dose was increased to 125 mcg daily except thursday. Current meal plan includes: 2 Pure Protein shakes ([employer], [employer], [employer]), First shake, (1/2 scoop in 8 oz low fat unsweetened almond milk or water) at 6am-8am, Second shake (1/2 scoop in 8 oz unsweetened almond milk or water) at 11am-1pm Dinner at 430pm (7 forks of protein and 7 forks of salad/vegetables). 1 protein bar ([employer] bars) at 630pm-830pm. Current exercise plan includes: States she has been watching her grandchild and has been unable to go to the gym, considering buying a treadmill Given form for discount to [employer] walking outside, 3 days per week. not tracking calories exercise videos at home 20-30 minutes daily PFSH Surgical History Status post total knee replacement, right Hx of tubal ligation Hx of appendectomy Family History Father History of kidney surgery Mother Hypertension Asthma Sister Diabetes Alcohol intake: former Patient Tobacco Use Status: Never used Tobacco Review of Systems Const All systems reviewed & are unremarkable except as noted in HPI and below Physical Exam Vital Signs: Last Vital Signs Temp 96.5 F L 09/28/23 08:14 Pulse 63 09/28/23 08:14 BP 129/63 09/28/23 08:14 Pulse Ox 94 09/28/23 08:14 Oxygen Delivery Method Room Air 09/28/23 08:14 BMI result Body Mass Index 36.7 On exam, she is anicteric and nontoxic She is having no respiratory difficulty Abdomen is obese No lower extremity edema is noted, a well-healed right knee scar is noted Results Reviewed Results Reviewed: labs 07/20/23 Hb 13.9, normochromic/normocytic indices and normal iron studies; wbc wnl, Plts 315K BUN is elevated at 17, creatinine 0.74 Cholesterol elevated at 230, TAGs elevated at 207 Hemoglobin A1c 5.6 Total bilirubin and alkaline phosphatase are normal, AST is elevated at 101, ALT 163 Vitamin-A is low and was replaced; vitamin B1 was low in replaced TSH 0.10 and being managed by her PCP Diagnostic imaging Abdominal ultrasound NAFLD & consistent with fibrosis is evidence by an increase sure wave of 2.06 CXR NAD UGI: No HH nor GERD Assessment & Plan Assessment & Plan (1) Obesity with body mass index (BMI) of 30.0 to 39.9: Code(s): E66.9 - Obesity, unspecified (2) Morbid obesity: Code(s): E66.01 - Morbid (severe) obesity due to excess calories (3) Arthritis: Code(s): M19.90 - Unspecified osteoarthritis, unspecified site (4) NAFLD (nonalcoholic fatty liver disease): Code(s): K76.0 - Fatty (change of) liver, not elsewhere classified (5) High cholesterol: Code(s): E78.00 - Pure hypercholesterolemia, unspecified (6) High blood triglycerides: Code(s): E78.1 - Pure hyperglyceridemia (7) Vitamin A deficiency: Code(s): E50.9 - Vitamin A deficiency, unspecified (8) Vitamin B1 deficiency: Code(s): E51.9 - Thiamine deficiency, unspecified (9) Bradycardia: Code(s): R00.1 - Bradycardia, unspecified Plan The patient is congratulated on her ongoing weight loss and healthy lifestyle changes. Options of continued medical management versus bariatric surgery including laparoscopic sleeve gastrectomy and laparoscopic gastric bypass were discussed and apparently understood. Patient remains interested in a sleeve gastrectomy. We candidly discussed the need for a high-protein/low-carbohydrate/low-fat diet and increased activity to augment surgical weight loss and that weight regain is the most common postoperative complication and is due to resuming maladaptive eating and sedentary behavior. I reviewed the inherent risks of this procedure which include, but are not limited to: Bleeding that could require another operation or blood transfusion; the inherent risks of transfusion reaction infectious disease from blood transfusions; the risk of staple line leaks that could cause sepsis, multi-system organ failure and ; the risk of mesenteric or deep vein thrombosis of the lower extremities that could cause a fatal pulmonary embolism was reviewed; the risk of GERD that could require conversion to gastric bypass was discussed; the risk of recurrent hiatal hernia, especially in the setting of weight regain was reviewed. The risk of weight regain if maladaptive eating and sedentary behavior continue was discussed. The importance of proper diet and increased activity to augment surgical weight loss and the fact that no operation would result in weight loss of poor dietary decisions and sedentary behavior are resumed were discussed at length and apparently understood. The patient had interpretive services present and seemed understand as well as have her questions satisfactorily answered. Peggy provided interpretation of the liver shrinking diet. Patient will begin the liver shrinking diet with her protein shakes and stop all food at this time. She will return for a follow-up in 1 week to review typical perioperative course. Bowel prep, postop protein shakes were discussed. Activity restrictions including the need to avoid lifting more than 20 lb in the inherent risk of dehydration which can lead to DVT and fatal PE was discussed and apparently understood. Patient notes that she has 4 weeks vacation she has been saving for postoperative recovery. Coding Level of Care Code Est Pt Level 4 (75926) Diagnoses Obesity with body mass index (BMI) of 30.0 to 39.9 E66.9 Morbid obesity E66.01 Arthritis M19.90 NAFLD (nonalcoholic fatty liver disease) K76.0 High cholesterol E78.00 High blood triglycerides E78.1 Vitamin A deficiency E50.9 Vitamin B1 deficiency E51.9 Bradycardia R00.1
[2023-09-28 08:14] VITALS: BP 129/63; PULSE 63; TEMP 35.8; O2SAT 94; BMI 36.7
== END 2023-09-28 09:00 | disposition home or self-care (01) ==
PROVIDERS: Visit Provider Surgery
DX: E66.9 Obesity, unspecified (principal); Z68.36 Body mass index [BMI] 36.0-36.9, adult; M19.90 Unspecified osteoarthritis, unspecified site; K76.0 Fatty (change of) liver, not elsewhere classified; E78.00 Pure hypercholesterolemia, unspecified; E78.1 Pure hyperglyceridemia; E50.9 Vitamin A deficiency, unspecified; E51.9 Thiamine deficiency, unspecified; R00.1 Bradycardia, unspecified
CPT/HCPCS: 99214

== ENCOUNTER → 2023-09-28 08:06 | Outpatient (BNVA) | payer OTHER, SELFPAY | PROVIDERS: Visit Provider Surgery | DX: E66.9 Obesity, unspecified (principal); R74.01 Elevation of levels of liver transaminase levels; K76.0 Fatty (change of) liver, not elsewhere classified; K74.00 Hepatic fibrosis, unspecified; E78.00 Pure hypercholesterolemia, unspecified; E78.1 Pure hyperglyceridemia; E50.9 Vitamin A deficiency, unspecified; E51.9 Thiamine deficiency, unspecified; R00.1 Bradycardia, unspecified; Z68.36 Body mass index [BMI] 36.0-36.9, adult; Z96.651 Presence of right artificial knee joint | CPT/HCPCS: 99212 ==

== ENCOUNTER → 2023-10-02 10:43 | Outpatient (BNVA) | payer OTHER, SELFPAY | PROVIDERS: Visit Provider Physician Assistant Surgical ==

== ENCOUNTER → 2023-10-09 07:37 | Outpatient (BNVA) | payer OTHER, SELFPAY | PROVIDERS: PCP Internal Medicine; Visit Provider Surgery | DX: E66.01 Morbid (severe) obesity due to excess calories (principal); E78.00 Pure hypercholesterolemia, unspecified; K76.0 Fatty (change of) liver, not elsewhere classified; E78.1 Pure hyperglyceridemia; E50.9 Vitamin A deficiency, unspecified; E51.9 Thiamine deficiency, unspecified; M19.90 Unspecified osteoarthritis, unspecified site | CPT/HCPCS: 99212 ==

== ENCOUNTER 2023-10-09 08:07 | Outpatient (AMB) | payer OTHER, SELFPAY ==
--- NOTE | 2023-10-09 07:37 | A.OFFVIS_ITS ---
Intake VS Expanded 10/09/23 08:17 BP 126/66 Blood Pressure Location Rt brachial Blood Pressure Position Sitting Pulse 72 Pulse Source Pulse Oximeter Temp 96.4 F L Temperature Source Temporal Artery Scan Pulse Oximetry 95 Oxygen Delivery Method Room Air Height 5 ft 3 in Weight 204 lb 3.2 oz BMI 36.2 Body Fat % 42.8 Body Fat Mass 87.4 Fat Free Mass 116.8 Visceral Fat Rating 11.0 Body Water % 40.7 Body Water Mass 83.2 Muscle Mass/Score 110.8 Basal Metabolic Rate/Score 1,625 Intake Visit Reasons: (OV) Pre Op LSG 10/12/23 Property Maintenance Supervisor Required: Yes Property Maintenance Supervisor Name: [place] Head Inspector And Center Marker: Head Inspector And Center Marker Present Allergies No Known Allergies [No Known Allergies*] Allergy (Verified 10/09/23 08:20) HPI HPI Comments History of Present Illness Details The patient is a pleasant 47 year old female who returns to the clinic for pre-operative surgical weight loss management. Her intake weight was 220 lb. Her comorbidities include hypercholesterolemia, fatty liver disease with elevation of her AST and ALT with liver fibrosis demonstrated on ultrasound, Today's weight is 204.2 pounds and BMI is 36.2. There has been a 16lb weight loss of 10% since initiating the surgical weight loss program on 05/18/23. 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 Abdominal surgery includes tubal ligation and an appendectomy; right TKR has also been done. Pre op work up completed as follows: SWL classes:? 06/09 BH appts: cleared 06/29/23? ? RD appts: cleared Labs: Low Vit A & B1 replaced; Transaminases elevated. Cholesterol is elevated at 230, TAGs elevated at 207 H. pylori: 06/15/23-neg CXR: NAD EKG: sinus yonis ABD U/S: 06/26/23-fatty liver UGI: No HH, nor GERD The patient reports she is doing well but feels as though she is stuck at her weight. She also spoke w her PCP about her TSH and her dose was increased to 125 mcg daily except thursday. Current meal plan includes: 2 Pure Protein shakes (Target, Big Y, CV S), First shake, (1/2 scoop in 8 oz low fat unsweetened almond milk or water) at 6 am-8am, Second shake (1/2 scoop in 8 oz unsweetened almond milk or water) at 11am-1pm Dinner at 430pm (7 forks of protein and 7 forks of salad/vegetables). 1 protein bar (Fit Crunch bars) at 630pm -830pm. Current exercise plan includes: States she has been watching her grandchild and has been unable to go to the gym, considering buying a treadmill Given form for discount to [employer] walking outside, 3 days per week. not tracking calories exercise videos at home 20-30 minutes daily [facility] Medical History Hypothyroid Arthritis Fatty liver Elevated cholesterol Surgical History Status post total knee replacement, right Hx of tubal ligation Hx of appendectomy Family History Father History of kidney surgery Mother Hypertension Asthma Sister Diabetes Social History Are you a primary career development associate to a significant other at home: No Do you presently have visiting nurse or other home services: No Alcohol intake: former Patient Tobacco Use Status: Never used Tobacco Review of Systems Const All systems reviewed & are unremarkable except as noted in HPI and below Reports as per HPI Physical Exam Vital Signs: Last Vital Signs Temp 96.4 F L 10/09/23 08:17 Pulse 72 10/09/23 08:17 BP 126/66 10/09/23 08:17 Pulse Ox 95 10/09/23 08:17 Oxygen Delivery Method Room Air 10/09/23 08:17 BMI result Body Mass Index 36.2 On exam, she is anicteric and nontoxic She is having no respiratory difficulty Abdomen is obese No lower extremity edema is noted, a well-healed right knee scar is noted Results Reviewed Results Reviewed: labs 07/20/23 Hb 13.9, normochromic/normocytic indices and normal iron studies; wbc wnl, Plts 315K BUN is elevated at 17, creatinine 0.74 Cholesterol elevated at 230, TAGs elevated at 207 Hemoglobin A1c 5.6 Total bilirubin and alkaline phosphatase are normal, AST is elevated at 101, ALT 163 Vitamin-A is low and was replaced; vitamin B1 was low in replaced TSH 0.10 and being managed by her PCP Diagnostic imaging Abdominal ultrasound NAFLD & consistent with fibrosis is evidence by an increase sure wave of 2.06 CXR NAD UGI: No HH nor GERD Assessment & Plan Assessment & Plan (1) Obesity with body mass index (BMI) of 30.0 to 39.9: Code(s): E66.9 - Obesity, unspecified (2) High cholesterol: Code(s): E78.00 - Pure hypercholesterolemia, unspecified (3) NAFLD (nonalcoholic fatty liver disease): Code(s): K76.0 - Fatty (change of) liver, not elsewhere classified (4) High blood triglycerides: Code(s): E78.1 - Pure hyperglyceridemia (5) Vitamin A deficiency: Code(s): E50.9 - Vitamin A deficiency, unspecified (6) Vitamin B1 deficiency: Code(s): E51.9 - Thiamine deficiency, unspecified (7) Arthritis: Code(s): M19.90 - Unspecified osteoarthritis, unspecified site (8) Morbid obesity: Code(s): E66.01 - Morbid (severe) obesity due to excess calories Plan The patient is congratulated on her ongoing lifestyle changes including diet and increased activity/exercise to as part of successful weight loss. Options of continued medical management and 2nd surgical opinion were discussed. Surgical options including gastric bypass and sleeve gastrectomy were reviewed. The patient would like to proceed with a laparoscopic sleeve gastrectomy, possible hiatal hernia repair, intraoperative upper endoscopy and possible ventral hernia repair. The importance of postoperative diet and exercise as beal to successful surgical weight loss was discussed and apparently understood. I reviewed the inherent risks of this procedure which include, but are not limited to: Bleeding that could require another operation or blood transfusion; the inherent risks of transfusion reaction infectious disease from blood transfusions; the risk of staple line leaks that could cause sepsis, multi- system organ failure and ; the risk of mesenteric or deep vein thrombosis of the lower extremities that could cause a fatal pulmonary embolism was reviewed; the risk of GERD that could require conversion to gastric bypass was discussed; the risk of recurrent hiatal hernia, especially in the setting of weight regain was reviewed. The risk of weight regain if maladaptive eating and sedentary behavior return was discussed and seemed to be understood. The importance of proper diet and increased activity to augment surgical weight loss and the fact that no operation would result in weight loss of poor dietary decisions and sedentary behavior are resumed were discussed at length and apparently understood. Interpretive services were present for today's visit. I disclosed my upcoming leave/absence and coverage plan, as well as the option of seeing Dr. Arndt for surgery Typical perioperative plan including 2 day bowel prep, protein shakes, postop meal plan written instructions and follow-up instructions were reviewed. Scripts were sent to her pharmacy. The importance of hydration to 50-60 oz of water not including the postoperative protein shakes was reviewed. Written postop meal plan instructions were provided to the patient in [place] [employer]. 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 Orders: Orders Vitamin A 10/06/23 E50.9 - Vitamin A deficiency, unspecified, E51.9 - Thiamine deficiency, unspecified, E66.01 - Morbid (severe) obesity due to excess calories, E66.9 - Obesity, unspecified, E78.00 - Pure hypercholesterolemia, unspecified, E78.1 - Pure hyperglyceridemia, K76.0 - Fatty (change of) liver, not elsewhere classified, M19.90 - Unspecified osteoarthritis, unspecified site Hemoglobin A1c 10/06/23 E50.9 - Vitamin A deficiency, unspecified, E51.9 - Thiamine deficiency, unspecified, E66.01 - Morbid (severe) obesity due to excess calories, E66.9 - Obesity, unspecified, E78.00 - Pure hypercholesterolemia, unspecified, E78.1 - Pure hyperglyceridemia, K76.0 - Fatty (change of) liver, not elsewhere classified, M19.90 - Unspecified osteoarthritis, unspecified site Type and Screen 10/06/23 E50.9 - Vitamin A deficiency, unspecified, E51.9 - Thiamine deficiency, unspecified, E66.01 - Morbid (severe) obesity due to excess calories, E66.9 - Obesity, unspecified, E78.00 - Pure hypercholesterolemia, unspecified, E78.1 - Pure hyperglyceridemia, K76.0 - Fatty (change of) liver, not elsewhere classified, M19.90 - Unspecified osteoarthritis, unspecified site C Reactive Protein 10/06/23 E50.9 - Vitamin A deficiency, unspecified, E51.9 - Thiamine deficiency, unspecified, E66.01 - Morbid (severe) obesity due to excess calories, E66.9 - Obesity, unspecified, E78.00 - Pure hypercholesterolemia, unspecified, E78.1 - Pure hyperglyceridemia, K76.0 - Fatty (change of) liver, not elsewhere classified, M19.90 - Unspecified osteoarthritis, unspecified site Vitamin D 25-OH Total 10/06/23 E50.9 - Vitamin A deficiency, unspecified, E51.9 - Thiamine deficiency, unspecified, E66.01 - Morbid (severe) obesity due to excess calories, E66.9 - Obesity, unspecified, E78.00 - Pure hypercholesterolemia, unspecified, E78.1 - Pure hyperglyceridemia, K76.0 - Fatty (change of) liver, not elsewhere classified, M19.90 - Unspecified osteoarthritis, unspecified site Comprehensive Met. Panel 10/06/23 E50.9 - Vitamin A deficiency, unspecified, E51.9 - Thiamine deficiency, unspecified, E66.01 - Morbid (severe) obesity due to excess calories, E66.9 - Obesity, unspecified, E78.00 - Pure hypercholesterolemia, unspecified, E78.1 - Pure hyperglyceridemia, K76.0 - Fatty (change of) liver, not elsewhere classified, M19.90 - Unspecified osteoarthritis, unspecified site TSH reflex Free T4 10/06/23 E50.9 - Vitamin A deficiency, unspecified, E51.9 - Thiamine deficiency, unspecified, E66.01 - Morbid (severe) obesity due to excess calories, E66.9 - Obesity, unspecified, E78.00 - Pure hypercholesterolemia, unspecified, E78.1 - Pure hyperglyceridemia, K76.0 - Fatty (change of) liver, not elsewhere classified, M19.90 - Unspecified osteoarthritis, unspecified site Prothrombin Time INR 10/06/23 E50.9 - Vitamin A deficiency, unspecified, E51.9 - Thiamine deficiency, unspecified, E66.01 - Morbid (severe) obesity due to excess calories, E66.9 - Obesity, unspecified, E78.00 - Pure hypercholesterolemia, unspecified, E78.1 - Pure hyperglyceridemia, K76.0 - Fatty (change of) liver, not elsewhere classified, M19.90 - Unspecified osteoarthritis, unspecified site Vitamin B1 10/06/23 E50.9 - Vitamin A deficiency, unspecified, E51.9 - Thiamine deficiency, unspecified, E66.01 - Morbid (severe) obesity due to excess calories, E66.9 - Obesity, unspecified, E78.00 - Pure hypercholesterolemia, unspecified, E78.1 - Pure hyperglyceridemia, K76.0 - Fatty (change of) liver, not elsewhere classified, M19.90 - Unspecified osteoarthritis, unspecified site Lipid Panel 10/06/23 E50.9 - Vitamin A deficiency, unspecified, E51.9 - Thiamine deficiency, unspecified, E66.01 - Morbid (severe) obesity due to excess calories, E66.9 - Obesity, unspecified, E78.00 - Pure hypercholesterolemia, unspecified, E78.1 - Pure hyperglyceridemia, K76.0 - Fatty (change of) liver, not elsewhere classified, M19.90 - Unspecified osteoarthritis, unspecified site Vitamin B12 10/06/23 E50.9 - Vitamin A deficiency, unspecified, E51.9 - Thiamine deficiency, unspecified, E66.01 - Morbid (severe) obesity due to excess calories, E66.9 - Obesity, unspecified, E78.00 - Pure hypercholesterolemia, unspecified, E78.1 - Pure hyperglyceridemia, K76.0 - Fatty (change of) liver, not elsewhere classified, M19.90 - Unspecified osteoarthritis, unspecified site Partial Thromboplastin Time 10/06/23 E50.9 - Vitamin A deficiency, unspecified, E51.9 - Thiamine deficiency, unspecified, E66.01 - Morbid (severe) obesity due to excess calories, E66.9 - Obesity, unspecified, E78.00 - Pure hypercholesterolemia, unspecified, E78.1 - Pure hyperglyceridemia, K76.0 - Fatty (change of) liver, not elsewhere classified, M19.90 - Unspecified osteoarthritis, unspecified site Complete Blood Count Auto Diff 10/06/23 E50.9 - Vitamin A deficiency, u nspecified, E51.9 - Thiamine deficiency, unspecified, E66.01 - Morbid (severe) obesity due to excess calories, E66.9 - Obesity, unspecified, E78.00 - Pure hypercholesterolemia, unspecified, E78.1 - Pure hyperglyceridemia, K76.0 - Fatty (change of) liver, not elsewhere classified, M19.90 - Unspecified osteoarthritis, unspecified site Ferritin 10/06/23 E50.9 - Vitamin A deficiency, unspecified, E51.9 - Thiamine deficiency, unspecified, E66.01 - Morbid (severe) obesity due to excess calories, E66.9 - Obesity, unspecified, E78.00 - Pure hypercholesterolemia, unspecified, E78.1 - Pure hyperglyceridemia, K76.0 - Fatty (change of) liver, not elsewhere classified, M19.90 - Unspecified osteoarthritis, unspecified site Zinc 10/06/23 E50.9 - Vitamin A deficiency, unspecified, E51.9 - Thiamine deficiency, unspecified, E66.01 - Morbid (severe) obesity due to excess calories, E66.9 - Obesity, unspecified, E78.00 - Pure hypercholesterolemia, unspecified, E78.1 - Pure hyperglyceridemia, K76.0 - Fatty (change of) liver, not elsewhere classified, M19.90 - Unspecified osteoarthritis, unspecified site IRON PROFILE 10/06/23 E50.9 - Vitamin A deficiency, unspecified, E51.9 - Thiamine deficiency, unspecified, E66.01 - Morbid (severe) obesity due to excess calories, E66.9 - Obesity, unspecified, E78.00 - Pure hypercholesterolemia, unspecified, E78.1 - Pure hyperglyceridemia, K76.0 - Fatty (change of) liver, not elsewhere classified, M19.90 - Unspecified osteoarthritis, unspecified site Medications: New polyethylene glycol 3350 (Miralax) Take 7 packets 2 days before surgery and 7 packets 1 day before surgery. Mix each packet with 8 oz's of water before surgery. 14 packets 0RF sucralfate 10 mL PO BID 30 days 600 mL 2RF ondansetron HCl 4 mg PO Q6H PRN 20 tabs 0RF nausea and vomiting pantoprazole 40 mg PO QAM 30 days 30 tabs 2RF Coding Level of Care Code Est Pt Level 4 (25384) Diagnoses Obesity with body mass index (BMI) of 30.0 to 39.9 E66.9 High cholesterol E78.00 NAFLD (nonalcoholic fatty liver disease) K76.0 High blood triglycerides E78.1 Vitamin A deficiency E50.9 Vitamin B1 deficiency E51.9 Arthritis M19.90 Morbid obesity E66.01
[2023-10-09 08:17] VITALS: BP 126/66; PULSE 72; TEMP 35.8; O2SAT 95; BMI 36.2
== END 2023-10-09 09:08 | disposition home or self-care (01) ==
PROVIDERS: PCP Internal Medicine; Visit Provider Surgery
DX: E66.9 Obesity, unspecified (principal); Z68.36 Body mass index [BMI] 36.0-36.9, adult
CPT/HCPCS: 99024

== ENCOUNTER 2023-10-12 06:06 | Inpatient (IN) | payer OTHER, SELFPAY ==
[2023-10-06 14:17] VITALS: BMI 36.7
[2023-10-09 09:40] LABS: MANUAL DIFF FLAG NO
[2023-10-09 10:02] LABS: Basophils Percent Auto 0.5 % (0-2); Eosinophils Absolute Auto 0.1 X10*3/uL (0.0-0.4); Eosinophils Percent Auto 2.2 % (0-4); Hematocrit 40.6 % (37.0-47.0); Hemoglobin 13.5 g/dl (12.0-16.0); Imm Gran Abs Auto 0.02 X10*3/uL (0.00-0.03); Imm Gran Pct Auto 0.3 % (0.0-0.4); Lymphocytes Absolute Auto 1.4 X10*3/uL (1.2-4.9); Lymphocytes Percent Auto 23.5 % (20-40); Mean Corpuscular HGB Conc 33.3 g/dl (31.0-35.0); Mean Corpuscular Hemoglobin 29.2 pg (27.0-33.0); Mean Corpuscular Volume 87.7 fL (80.0-98.0); Mean Platelet Volume 9.5 fL (9.4-12.3); Monocytes Absolute Auto 0.5 X10*3/uL (0.1-1.2); Monocytes Percent Auto 7.8 % (2-11); Neutrophils Percent Auto 65.7 % (45-73); Platelet Count 350 X10*3/uL (160-400); Prothrombin Time 11.8 SEC (11.1-13.3); Red Blood Count 4.63 X10*6/uL (4.20-5.50); Red Cell Distribution Width 12.1 % (11.0-16.0)
[2023-10-09 10:05] LABS: Partial Thromboplastin Time 32.2 SEC (26.0-36.4)
[2023-10-09 10:09] LABS: Estimated Average Glucose 117 mg/dL; Hemoglobin A1c % 5.7 % (<6.0)
[2023-10-09 10:53] LABS: Alanine Aminotransferase 187 U/L (0-31); Alkaline Phosphatase 82 U/L (39-117); Anion Gap 10 (12-20); Aspartate Amino Transferase 145 U/L (5-31); Bilirubin Total 0.6 mg/dL (0.0-1.0); Blood Urea Nitrogen 17 mg/dL (9-16); C Reactive Protein 0.57 mg/dL (< or = 0.50); Calcium 9.4 mg/dL (8.4-10.2); Carbon Dioxide 25 mmol/L (22-29); Chloride 109 mmol/L (96-108); Cholesterol 237 mg/dL (<200); Creatinine Clr Calc Pharmacy 104.8; Estimated Glomerular Filt Rate > 60; Glucose Random 98 mg/dL (60-115); HDL Cholesterol 38 mg/dL (>40); Iron 160 mcg/dL (30-160); LDL Cholesterol Calculated 180 mg/dL (<100); Percent Iron Saturation 48 % (15-50); Potassium 3.8 mmol/L (3.3-5.1); Sodium 140 mmol/L (135-145); Total Iron Binding Capacity 332 mcg/dL (228-428); Total Protein 7.7 g/dL (6.5-8.0); Triglycerides 97 mg/dL (<150); Unsaturated Iron Binding 172 ug/dL
[2023-10-09 11:14] LABS: Vitamin B12 420 pg/mL (200-900)
[2023-10-09 11:26] LABS: Ferritin 379 ng/mL (10-250); Vitamin D 25-OH Total 29.7 ng/mL (>30)
--- NOTE | 2023-10-11 06:57 | P.OP_ITS ---
Operative Note Operative Note Date of Service: 10/12/23 Narrative: Preop diagnosis: [Morbid obesity, hypercholesterolemia, NAFLD & elevated tranaminases] Postop diagnosis: [same, no hiatal hernia] Procedure: [Laparoscopic sleeve gastrectomy, gastropexy, intraoperative upper endoscopy] Surgeon: Geovanni Agustin MD, [facility], [facility] Assist: [Carmel French PA-C] Anesthesia: [GET, Marcaine, 0.25% with epi] Estimated blood loss: [3cc] Specimen: [Portion of stomach with fundus] Intraoperative findings: [Grossly normal liver, no evidence of hiatal hernia, grossly normal stomach, path pending] Indications: [The patient is a pleasant 47 year old female who entered the [employer] weight loss program. Her intake weight was 227 lb/BMI 40.3. Her comorbidities include hypercholesterolemia, fatty liver disease with elevation of her AST and ALT with liver fibrosis demonstrated on ultrasound. The patient had interpretive services for all of her visits including the preop last week. The patient was congratulated on healthy lifestyle changes that increase her risk of success following surgical intervention and we reviewed the inherent risks of this procedure which include, but are not limited to: Bleeding that could require another operation or blood transfusion; the inherent risks of transfusion reaction infectious disease from blood transfusions; the risk of staple line leaks that could cause sepsis, multi-system organ failure and ; the risk of mesenteric or deep vein thrombosis of the lower extremities that could cause a fatal pulmonary embolism was reviewed; the risk of GERD that could require conversion to gastric bypass was discussed; the risk of recurrent hiatal hernia, especially in the setting of weight regain was reviewed. The risk of weight regain if maladaptive eating and sedentary behavior continue was discussed. The importance of proper diet and increased activity to augment surgical weight loss and the fact that no operation would result in weight loss of poor dietary decisions and sedentary behavior are resumed were discussed at length and apparently understood. The patient seemed understand her options and wanted to proceed as recommended.] Procedure: [ The patient was identified in the preoperative holding area by myself and again in the operating suite 6 by myself and the OR team. Patient was placed supine on the operating table. Safety straps were utilized and a footboard utilized. The patient was induced in general endotracheal anesthesia administered with excellent effect. An appropriate time-out was performed. The patient's abdomen was then widely prepped and draped in the usual manner for surgery using chlorprep. Antibiotics per protocol were administered by Anesthesia. After infiltrating preemptive local in the skin and subcutaneous tissues in the left upper quadrant, a stab incision was made sharply in the left subcostal abdomen and the Veress needle inserted without incident. An appropriate drop test was performed then a pneumoperitoneum of 15 mmHg was obtained using carbon dioxide. Opening pressures were 6 mmHg. Next, a 5 mm 0 degree scope over a 5 mm Optiview trocar was used to access the abdomen via the epigastric incision in the midline. Once the abdomen was entered, the the trocar obturator was removed and the laparoscope was used to confirm there was no injury from the Veress needle nor trocar insertion injury to the bowel or mesentery, then the scope was switched to a 5 mm 45 degree laparoscope. Next, using preemptive local, additional 5 mm trocars were placed under direct laparoscopic vision on the patient's left abdomen, then right and the 5 mm midline trocar upsized to a 12 mm to accommodate the stapler. The patient was then positioned in reverse Trendelenburg and the liver retractor deployed through the right lateral 5 mm trocar and secured. A 40 Nepali ViSiGi bougie was inserted by Anesthesia per os and advanced to the stomach to decompress. It was then withdrawn to the GE junction all under direct laparoscopic vision. Dissection was begun along the greater curvature using the 5 mm [place] LigaSure for hemostasis and continued to the left arnaldo of the diaphragm. Dissection was then carried towards the pylorus to 3-4 cm from the pylorus and retro gastric adhesions lysed. The gastroesophageal fat pad was carefully mobilized taking care to avoid injury to the esophagus and stomach and dissection carried towards the short gastrics taking care to avoid injury to the spleen and splenic artery. The diaphragmatic hiatus was carefully examined for a hernia, and no apparent hernia was appreciated. Next, the 40 Fr ViSiGi bougie was advanced by anesthesia under direct vision and laparoscopic guidance and positioned in the antrum approximately 3 cm from the pylorus using laparoscopic graspers to serve as a guide for a stapled sleeve gastrectomy. Stapling was performed with [employer] power stapler Endo-MATHEUS stapler with a purple 45 and 60 loads as needed to keep the sleeve morphology uniform. The bougie served as a guide to maintain the same sleeve caliber to avoid stricture & sleeve distortion. The 10 mm clip baby formula mixer was used to apply additional clips to the staple line. Care was taken to be sure that the sleeve laid flat and was without stricture. Once the sleeve was complete, the portion of stomach was placed in the lower abdomen to be sent for removal and permanent section. The staple line, gastrocolic omentum, spleen and short gastric areas were all inspected for hemostasis which was found to be good. The ViSiGi bougie used for a leak test by reducing the reverse Trendelenburg and instilling sterile s viviana. Next, the bougie was withdrawn under laparoscopic vision used to suction the esophagus and hypopharynx and then discarded. After inspecting again for hemostasis, a gastropexy was performed using 2-0 Polysorb suture to secure the sleeve gastrectomy to the gastrocolic omentum with intracorporeal suturing technique. Next, I broke scrub perform an on-table upper endoscopy to assess the sleeve and the esophagus and stomach. The patient was returned to neutral position and the Olympus 160 gastroscope was advanced per os taking care to preserve the endotracheal tube. The esophagus was intubated without incident. Minimal air was insufflated and the scope advanced into the newly formed sleeve. The staple line was inspected for hemostasis and the morphology of the sleeve appeared straight with a uniform diameter. Intraoperatively, there was no evidence of staple line leak seen during laparoscopy as air was insufflated via endoscope. The scope was then used to aspirate the air from the sleeve withdrawn and removed. I then rescrubbed to return to the operative field and again inspected the field for hemostasis. After final assessment for hemostasis, the patient was returned to neutral position, a Roderick used to withdraw the resected gastric specimen which was sent for permanent section. The fascia of the 12 mm midline was closed using an 0 Polysorb figure of 8 on a suture passer under direct laparoscopic vision. The abdomen was then deflated and all trocars removed. The suture was then tied and the skin closed with 4-0 Monocryl subcuticular sutures. The abdomen was then washed and dried, benzoin and Steri-Strips applied followed by Tegaderms. The patient tolerated the procedure well was then extubated the recover in stable condition. All sponge needle and instrument counts were correct x2. At the patient's request, I contacted her daughter, Rosana at [phone] by telephone to apprise her of the operation, but it went immediately to voicemail indicating she was unavailable. Brief message noting that surgery went well was left.]
--- NOTE | 2023-10-11 06:57 | MHC.SHP ---
Pre-Procedural Eval Section A Date of Service: 10/11/23 The patient is an INPATIENT: Yes The History & Physical has been completed within 30 days and I have reviewed it.: Yes Section B Chief Complaint: Obesity, unspecified Allergies: Allergies Allergy/AdvReac Type Severity Reaction Status Date / Time No Known Allergies Allergy Verified 10/09/23 08:20 [No Known Allergies*] Plan I have reviewed the history and physical and performed a pertinent physical examination on my patient. No changes have occurred unless specified. Time Spent With Patient Time: Total time managing care of this patient today ____ minutes.
[2023-10-12] VITALS (14 sets, daily range): BP systolic 119–153; BP diastolic 58–87; PULSE 50–85; RESP 12–18; TEMP 36.1–36.7; O2SAT 91–96; BMI 36.5
[2023-10-12] MEDS: Lactated Ringers 1,000 ML 150 ML IVCONT (06:30)
[2023-10-12] MEDS: Aprepitant 32 MG/4.4 ML VIAL IVPUSH (07:10)
--- NOTE | 2023-10-12 07:20 | HO.ANESPROP2 ---
Documented by User: Xiemna Ellison NP 10/09/23 10:55 HPI - Anesthesia Eval Consult details Narrative: 48yo F for Gastrectomy Sleeve,EGD,poss diaphragmatic hernia,poss ventral hernia,poss open, PMFSH Active Problems Active Problems: All Active Problems (Updated 10/06/23 @ 09:09 by Kath Amaya RN) Bradycardia (Acute) Vitamin B1 deficiency (Acute) Vitamin A deficiency (Acute) High blood triglycerides (Acute) High cholesterol (Acute) NAFLD (nonalcoholic fatty liver disease) (Acute) Conjunctivitis (Acute) Obesity with body mass index (BMI) of 30.0 to 39.9 (Acute) Arthritis (Acute) Morbid obesity (Acute) Past Medical History Medical History Hypothyroid Arthritis Fatty liver Elevated cholesterol Family History Family History Father History of kidney surgery Mother Hypertension Asthma Sister Diabetes Surgical History Surgical History Status post total knee replacement, right Hx of tubal ligation Hx of appendectomy Social History Social History Are you a primary rn primary care to a significant other at home: No Do you presently have visiting nurse or other home services: No Alcohol intake: former Patient Tobacco Use Status: Never used Tobacco Use of substances other than those prescribed or required for medical reasons: No Have you been hit, kicked, punched, or otherwise hurt by someone within the past year? If so, by whom?: No Are you DNR?: No Advance Directives: No Advance Directives Information Provided: Yes Advance Directives on File: No Recently lost weight without trying: No Eating poorly because of decreased appetite: No Nutrition Risks: No Nutritional Risk Patient : No FDLMP: 10/03/23 : No Poor oral hygiene: No (2 crowns upper front) Meds Allergies Allergy/AdvReac Type Severity Reaction Status Date / Time No Known Allergies Allergy Verified 10/12/23 06:18 [No Known Allergies*] Home Medications Medication Instructions Recorded Confirmed Last Taken Type levothyroxine 100 mcg tablet 125 mcg PO DAILY 11/04/2410/12/23 10/12/23 History Exam Height,Weight and Vital Signs: Height 5 ft 3 in Weight 94.075 kg Pertinent Lab Results Pertinent Lab Results: Lab Results 10/09/23 10/09/23 Range/Units 09:30 09:39 WBC 6.0 (4.8-10.8) X10*3/uL RBC 4.63 (4.20-5.50) X10*6/uL Hgb 13.5 (12.0-16.0) g/dl Hct 40.6 (37.0-47.0) % MCV 87.7 (80.0-98.0) fL MCH 29.2 (27.0-33.0) pg MCHC 33.3 (31.0-35.0) g/dl RDW 12.1 (11.0-16.0) % Plt Count 350 (160-400) X10*3/uL MPV 9.5 (9.4-12.3) fL Immature Gran % (Auto) 0.3 (0.0-0.4) % Neut % (Auto) 65.7 (45-73) % Lymph % (Auto) 23.5 (20-40) % [place] % (Auto) 7.8 (2-11) % Eos % (Auto) 2.2 (0-4) % Baso % (Auto) 0.5 (0-2) % Lymph # (Auto) 1.4 (1.2-4.9) X10*3/uL [place] # (Auto) 0.5 (0.1-1.2) X10*3/uL Eos # (Auto) 0.1 (0.0-0.4) X10*3/uL Baso # (Auto) 0.0 (0.0-0.2) X10*3/uL Abs Immat Gran (auto) 0.02 (0.00-0.03) X10*3/uL Absolute Neuts (auto) 4.0 (2.0-8.3) x10*3/uL Absolute Nucleated RBC 0.000 (0.0-0.012) X10*3/uL Nucleated RBC % (auto) 0.0 (0.0-0.2) /100WBC PT 11.8 (11.1-13.3) SEC INR 1.0 (0.9-1.1) APTT 32.2 (26.0-36.4) SEC Sodium 140 (135-145) mmol/L Potassium 3.8 (3.3-5.1) mmol/L Chloride 109 H (96-108) mmol/L Carbon Dioxide 25 (22-29) mmol/L Anion Gap 10 L (12-20) BUN 17 H (9-16) mg/dL Creatinine 0.70 (0.5-1.4) mg/dL Estim Creat Clear Calc 104.8 Estimated GFR > 60 Random Glucose 98 (60-115) mg/dL Estimat Average Glucose 117 mg/dL Hemoglobin A1c % 5.7 (<6.0) % Calcium 9.4 D (8.4-10.2) mg/dL Iron 160 (30-160) mcg/dL TIBC 332 (228-428) mcg/dL % Saturation 48 (15-50) % Unsat Iron Binding 172 ug/dL Total Bilirubin 0.6 (0.0-1.0) mg/dL AST 145 H (5-31) U/L ALT 187 H (0-31) U/L Alkaline Phosphatase 82 (39-117) U/L C-Reactive Protein 0.57 H (< or = 0.50) mg/dL Total Protein 7.7 (6.5-8.0) g/dL Albumin 4.0 (3.5-5.0) g/dL Triglycerides 97 (<150) mg/dL Cholesterol 237 H (<200) mg/dL LDL Cholesterol, Calc 180 H (<100) mg/dL HDL Cholesterol 38 L (>40) mg/dL Blood Type O Positive Antibody Screen NEGATIVE Narrative Narrative: EKG 07/2023 Vent. Rate : 059 BPM Atrial Rate : 059 BPM P-R Int : 148 ms QRS Dur : 082 ms QT Int : 416 ms P-R-T Axes : 022 031 022 degrees QTc Int : 411 ms Sinus bradycardia Otherwise normal ECG When compared with ECG of 23-MAY-2015 20:23, Heart rate has decreased Assessment and Plan Assessment Anesthesia Assessment: Chart Reviewed Documented by User: Lona Mack DO 10/12/23 07:26 [facility] Past Medical History Medical History Hypothyroid Arthritis Fatty liver Elevated cholesterol Family History Family History Father History of kidney surgery Mother Hypertension Asthma Sister Diabetes Family history of problems with anesthesia: No Surgical History Surgical History Status post total knee replacement, right Hx of tubal ligation Hx of appendectomy History of Problems with Anesthesia: No Social History Social History Are you a primary rn primary care to a significant other at home: No Do you presently have visiting nurse or other home services: No Alcohol intake: former Patient Tobacco Use Status: Never used Tobacco Use of substances other than those prescribed or required for medical reasons: No Have you been hit, kicked, punched, or otherwise hurt by someone within the past year? If so, by whom?: No Are you DNR?: No Advance Directives: No Advance Directives Information Provided: Yes Advance Directives on File: No Recently lost weight without trying: No Eating poorly because of decreased appetite: No Nutrition Risks: No Nutritional Risk Patient : No FDLMP: 10/03/23 : No Poor oral hygiene: No (2 crowns upper front) Meds Allergies Allergy/AdvReac Type Severity Reaction Status Date / Time No Known Allergies Allergy Verified 10/12/23 06:18 [No Known Allergies*] Home Medications Medication Instructions Recorded Confirmed Last Taken Type levothyroxine 100 mcg tablet 125 mcg PO DAILY 09/07/23 10/12/23 10/12/23 History Exam Exam Date and Time: October 12, 2023 0720 Height,Weight and Vital Signs: Height 5 ft 3 in Weight 94.075 kg Height 5 ft 3 in Weight 93.497 kg Vital Signs Temperature 97.8 F 10/12/23 06:39 Pulse Rate 73 10/12/23 06:39 Respiratory Rate 16 10/12/23 06:39 Blood Pressure 134/71 10/12/23 06:39 Pulse Oximetry 96 10/12/23 06:39 Oxygen Delivery Method Room Air 10/12/23 06:39 Temperature 97.8 F 10/12/23 06:39 Pulse Rate 73 10/12/23 06:39 Respiratory Rate 16 10/12/23 06:39 Blood Pressure 134/71 10/12/23 06:39 Pulse Oximetry 96 10/12/23 06:39 Oxygen Delivery Method Room Air 10/12/23 06:39 Airway Mallampati Class: II TM Dist: <=3cm Neck ROM: Full Loose/Missing/Broken Teeth: No Heart: S1S2 Lungs: CTAB Assessment and Plan Assessment Anesthesia Assessment: Anesthesia Plan Discussed and Chart Reviewed Final Anesthetic Review Family History of Problems with Anesthesia: No History of Problems with Anesthesia: No NPO: Yes ASA Class: II Final Preanesthetic Review: No Changes in Pt Med Stat, Meds/Allgs Chart Reviewed, Consent Obtained/Reviewed and Anes Risks/Benef Reviewed Patient Risk: Low Procedure Risk: Low Anesthetic Plan Anesthetic Plan: GA and Agree w/ Assess. and Plan Disposition: Standard PACU
--- NOTE | 2023-10-12 08:28 | PHA.MEDREC ---
Pharmacy Consult ? Medication Reconciliation Pharmacy has completed the medication reconciliation.
--- NOTE | 2023-10-12 09:44 | P.DS_ITS ---
DS: Providers Provider Date of Service: 10/13/23 Date of admission: 10/12/23 06:06 Primary care physician: Tenzin Harris III, MD DS: Summary Hospital Course Hospital Course: ADMITTING DIAGNOSIS: morbid obesity, hypothyroidism DISCHARGE DIAGNOSIS: same, s/p laparoscopic sleeve gastrectomy PAST SURGICAL HISTORY: R TKJR, appendectomy, tubal ligation PROCEDURE: upper endoscopy, laparoscopic sleeve gastrectomy DISCHARGE SUMMARY: History of Present Illness: The patient is a 48 year-old woman with a BMI of 38.2 kg/m2 and associated co- morbidities as described above. The patient had extensive work-up, lost 21.3 bs preoperatively and was electively scheduled for laparoscopic, possible open sleeve gastrectomy and gastropexy. Risks and complications of the surgery were discussed with the patient in advance, particularly the possibility of , pulmonary embolism, anastomotic leak, bleeding, bowel injury, GERD, cardiac, renal or pulmonary complications. The patient understood all the risks and was in agreement with the surgical plan. Hospital Course: The patient underwent an uneventful laparoscopic sleeve gastrectomy with gastropexy on the day of admission. Postoperatively, the patient was transferred to the surgical floor. The patient received IV Acetaminophen and IV dilaudid for pain control. Patient was started on bariatric phase 1 diet POD #0. On postoperative day one, the patient was feeling well without nausea, vomiting, fevers, or tachycardia. The patient had some mild incisional pain and the abdomen was soft. On the morning of postoperative day one, the patient was continued on 1 ounce of water or ice every half hour. During the day, the patient did fairly well, having some incisional pain, but able to ambulate adequately and to tolerate liquids well. Since the patient is doing well, we decided that the patient was ready to be discharged. The patient was given instructions to follow-up with me next week and to call my office for any fever over 101, persistent abdominal pain, nausea, vomiting, GERD, symptoms of DVT such as calf tenderness, or leg swelling, or pulmonary embolism such as chest pain or shortness of breath. The patient was also instructed to drink 40-60 ounces of liquids per day using the 1-ounce cups. The patient had been given prescriptions for Tylenol for pain, Zofran prn for nausea, and pantoprazole and carafate previously. The patient was encouraged to ambulate and use the incentive spirometer. The patient was allowed to shower, but no baths, and encouraged to stay active at home. All of these instructions were given to the patient personally. All questions were answered and the patient understood all instructions, the instructions were also given to the patient in print. Time Attestation Discharge coordination time: Less than 30 minutes Quality: Safe Use of Opioids Does Pt have an Active Cancer Diagnosis on the Problem List?: No Quality: Stroke Does the patient have a stroke diagnosis?: No Physical Exam Vital Signs: Vital Signs: Last Vital Signs Temp 97.8 F 10/12/23 06:39 Pulse 73 10/12/23 06:39 Resp 16 10/12/23 06:39 BP 134/71 10/12/23 06:39 Pulse Ox 96 10/12/23 06:39 O2 Del Method Room Air 10/12/23 06:39 BMI result Body Mass Index 36.5 DS: Data Data Completed and Pending Pending studies at discharge: Pending at discharge 10/12/23 09:29 Surgical [PTH] Routine Discharge Plan Discharge Anticipated Discharge Date/Time: 10/13/23 10:00 Patient Disposition: Home, Self-Care Discharge Diagnosis: s/p sleeve gastrectomy Referrals: Tenzin Harris III, MD [Primary Care Provider] - 1 Week Geovanni Agustin MD, RANDALL MATTJuwan [Physician] - 1 Week Discharge Medications: Continued ondansetron HCl 4 mg tablet 4 mg PO Q6H PRN (Reason: nausea and vomiting) Qty: 20 0RF pantoprazole 40 mg tablet,delayed release (DR/EC) 40 mg PO QAM 30 Days Qty: 30 2RF sucralfate 100 mg/mL suspension 10 ml PO BID 30 Days Qty: 600 2RF levothyroxine 100 mcg tablet 125 mcg PO DAILY Rx Instructions: except thursday Discontinued vitamin A palmitate 3,000 mcg (10,000 unit) capsule 3,000 mcg PO DAILY 90 Days Qty: 90 0RF thiamine HCl (vitamin B1) 100 mg tablet 100 mg PO DAILY 90 Days Qty: 90 0RF polyethylene glycol 3350 [Miralax] 17 gram powder in packet See Rx Instructions PO DAILY Qty: 14 0RF Rx Instructions: Take 7 packets 2 days before surgery and 7 packets 1 day before surgery. Mix each packet with 8 oz's of water before surgery. Discharge Orders: Discharge Order (Routine); Ordered 10/13/23 Ordered By: Geovanni Agustin Diet: Bariatric Phase 2 Activity on Discharge: No heavy lifting Stand Alone Forms: Patient Portal Discharge page Care Plan Goals: weight loss Health Concerns: morbid obesity Plan of Treatment: 1. Please call your doctor or come back to the emergency room should any new symptoms arise. 2. Activity: You may shower. No tub baths, sex or returning to work until discussed at first post op appointment. No exercise, alcohol, tobacco or illegal drug use. 3. Diet: continue as discussed with bariatric team.. 4. Dressing Change/Wound Care: Do not change or remove surgical dressings unless they are wet or soiled. 5. Call your doctor if: - Your temperature exceeds 101.5 F - You experience excessive pain or swelling - You have an unexpected reaction to medication - You have excessive bleeding - You experience continued vomiting/nausea - Your incision begins to separate - Your incision shows signs of infection such as increased redness, swelling, excessive pain, heat, or drainage (light blood or clear fluid is normal) 6. Continue to use incentive spirometer hourly while awake. Walk in home for 5- 10 minutes every 2 hours during the first week. The patient's medical history has been reviewed and they are considered low risk for post op DVT and therefore DVT prophylaxis is not considered necessary. Travel after surgery was reviewed. The patient has not disclosed any travel plans during the first 30 days after surgery and they have been advised that within the first 30 days after surgery any bus, plane, train or car travel over 2 hours in duration is contraindicated due to the possibility of developing blood clots from immobility. Any travel, needs to include periods of ambulation of 10 minutes in duration every 2 hours. The patient was instructed to discuss any plans for travel during this period with their bariatric surgeon. 7. General instructions: No lifting greater than 5 lbs for 1 week and not more than 20lbs the next 3?weeks. No driving until seen at the office in 5-7 days after surgery. Please walk around your home every hour or two to prevent blood clots from forming in your legs. Please follow the post op diet instructions you are?given by the bariatric team.?If you have any issues or concerns or questions please call the office/answering service to speak with the bariatric provider electrical installation supervisor.? The Celebrate shakes have all of the bariatric vitamins that you need. If you are drinking other protein shakes, you will need to purchase the Celebrate multivitamins and calcium that are available in the hospital gift shop.??Do not take any new medications without first discussing this with the bariatric team. Please make sure you are consuming at least 40 ounces of fluids per day starting the?day AFTER your discharge from the hospital. Each one ounce cup represents 6 sips. If you drink faster you may experience?bloating,?gas pain, burping, nausea or heartburn. Do not hesitate to contact the office with any questions at . Assessment: stable, post op sleeve gastrectomy
[2023-10-12 10:21] LABS: Hematocrit 39.3 % (37.0-47.0)
[2023-10-12 10:41] LABS: Anion Gap 14 (12-20); Blood Urea Nitrogen 12 mg/dL (9-16); Carbon Dioxide 22 mmol/L (22-29); Chloride 109 mmol/L (96-108); Creatinine Clr Calc Pharmacy 97.5; Estimated Glomerular Filt Rate > 60; Glucose Random 141 mg/dL (60-115); Sodium 141 mmol/L (135-145)
[2023-10-12] MEDS: Lactated Ringers 1,000 ML 100 ML IVCONT ×2 (11:44→20:59)
[2023-10-12] MEDS: Famotidine/PF 20 MG/2 ML VIAL IVPUSH ×2 (11:44→19:53)
[2023-10-12] MEDS: ceFAZolin Sodium/Dextrose,Iso 2 GM/50 ML PIGGYBACK IV (13:22)
--- NOTE | 2023-10-12 14:44 | PM.PNGS ---
Subjective Subjective Date of Service: 10/12/23 Patient reports: no new complaints, feels better and tolerating liquids well Interval history: Patient is seen on at approximately 14:50. She reports no regurgitation, GERD, dysphagia, odynophagia and is following bariatric phase 1 diet without difficulty. She has been up to the bathroom and denies any chest pain, difficulty breathing or shortness of breath. Physical Exam Vital Signs: Vital Signs: Last Vital Signs Temp 98.1 F 10/12/23 11:37 Pulse 62 10/12/23 11:37 Resp 14 10/12/23 11:37 BP 138/77 10/12/23 11:37 Pulse Ox 94 10/12/23 11:37 O2 Del Method Nasal Cannula 10/12/23 11:37 O2 Flow Rate 3 10/12/23 11:37 BMI result Body Mass Index 36.5 On exam she is in good spirits and nontoxic She is breathing comfortably Expected abdominal discomfort is noted in the abdominal binder is in place Objective Data Active Medications Famotidine (Famotidine/Pf 20 Mg/2 Ml Vial) 20 mg IVPUSH BID [facility] Last Admin: 10/12/23 11:44 Dose: 20 mg Documented By: NOE Hydromorphone HCl (Hydromorphone Hcl 0.5 Mg/0.5 Ml Syringe) 0.5 mg IVPUSH Q5M PRN; Protocol PRN Reason: Pain, Severe (Pain Scale 7-10) Hydromorphone HCl (Hydromorphone Hcl 0.5 Mg/0.5 Ml Syringe) 0.25 mg IVPUSH Q4H PRN; Protocol PRN Reason: Pain, Moderate(Pain Scale 4-6) Lactated Ringer's (Lr) 1,000 mls @ 150 mls/hr IVCONT .Q6H40M [facility] Last Admin: 10/12/23 11:43 Dose: Not Given Documented By: NOE Non-Admin Reason: IV Running Promethazine HCl 12.5 mg/ (Sodium Chloride) 50.5 mls @ 202 mls/hr IV ONCE PRN PRN Reason: Nausea and Vomiting Acetaminophen (Ofirmev) 1,000 mg in 100 mls @ 16.7 mls/hr IV .Q6H [facility] Lactated Ringer's (Lr) 1,000 mls @ 100 mls/hr IVCONT .Q10H [facility] Last Admin: 10/12/23 11:44 Dose: 100 mls/hr Documented By: NOE Levothyroxine Sodium (Levothyroxine Sodium 125 Mcg Tablet) 125 mcg PO DAILY@0600 [facility] Metoclopramide HCl (Metoclopramide Hcl 10 Mg/2 Ml Vial) 10 mg IVPUSH Q6H PRN PRN Reason: Nausea Ondansetron HCl (Ondansetron Hcl 4 Mg/2 Ml Vial) 4 mg IVPUSH Q8H PRN PRN Reason: Nausea Sodium Chloride (0.9 % Sodium Chloride Flush 3 Ml Syringe) 3 ml IVFLUSH QSHIFT [facility] Labs 10/12/23 10:15 10/12/23 10:15 Labs: Laboratory Results - last 24 hr 10/12/23 10:15 Anion Gap 14 Estim Creat Clear Calc 97.5 Estimated GFR > 60 Random Glucose 141 H Calcium 9.0 Procedures Date of Service Date of Service: 10/12/23 Progress Note: A&P Assessment and plan (1) S/P laparoscopic sleeve gastrectomy: Status: Acute (2) NAFLD (nonalcoholic fatty liver disease): Status: Acute (3) High cholesterol: Status: Acute (4) High blood triglycerides: Status: Acute (5) Vitamin A deficiency: Status: Acute (6) Vitamin B1 deficiency: Status: Acute (7) Morbid obesity: Status: Acute Plan Labs noted and stable. Repeat in morning. Encourage incentive spirometry, bariatric phase 1 diet and out of bed/ambulation. Time Spent With Patient Time: Total time managing care of this patient today ____ minutes. Quality Stroke Does the patient have a stroke diagnosis?: No VTE Prior VTE?: No VTE Risk Level:: Surgical - moderate VTE Device Contraindication: N/A - Device Ordered VTE Drug Contraindication: Treatment Not Indicated
[2023-10-12] MEDS: Acetaminophen 1,000 MG/100 ML PIGGYBACK 16.7 MG IV ×2 (14:58→19:53)
--- NOTE | 2023-10-12 15:30 | PHA.MEDREC ---
Pharmacy Consult ? Medication Reconciliation Pharmacy has completed the medication reconciliation. Spoke to patient and verified medication list. Ondansetron, pantoprazole and sucralfate were prescribed for patient to take after surgery.
[2023-10-12 18:43] LABS: Zinc 79 mcg/dL (60-130)
[2023-10-12] MEDS: 0.9 % Sodium Chloride Flush 3 ML SYRINGE IVFLUSH (19:53)
[2023-10-13] MEDS: Acetaminophen 1,000 MG/100 ML PIGGYBACK 16.7 MG IV (01:53)
[2023-10-13 04:00] VITALS: BP 133/74; PULSE 53; RESP 16; TEMP 35.9
[2023-10-13] MEDS: Levothyroxine Sodium 125 MCG TABLET PO (05:23)
[2023-10-13] MEDS: Lactated Ringers 1,000 ML 100 ML IVCONT (06:07)
[2023-10-13 06:49] LABS: MANUAL DIFF FLAG NO
[2023-10-13 06:53] LABS: Basophils Percent Auto 0.1 % (0-2); Hematocrit 39.8 % (37.0-47.0); Hemoglobin 13.2 g/dl (12.0-16.0); Imm Gran Abs Auto 0.07 X10*3/uL (0.00-0.03); Imm Gran Pct Auto 0.5 % (0.0-0.4); Lymphocytes Absolute Auto 1.3 X10*3/uL (1.2-4.9); Lymphocytes Percent Auto 9.4 % (20-40); Mean Corpuscular HGB Conc 33.2 g/dl (31.0-35.0); Mean Corpuscular Hemoglobin 29.8 pg (27.0-33.0); Mean Corpuscular Volume 89.8 fL (80.0-98.0); Mean Platelet Volume 9.7 fL (9.4-12.3); Monocytes Absolute Auto 0.8 X10*3/uL (0.1-1.2); Neutrophils Absolute Auto 11.1 x10*3/uL (2.0-8.3); Platelet Count 373 X10*3/uL (160-400); Red Blood Count 4.43 X10*6/uL (4.20-5.50); Red Cell Distribution Width 11.9 % (11.0-16.0); White Blood Count 13.3 X10*3/uL (4.8-10.8)
--- NOTE | 2023-10-13 07:03 | PM.PNGS ---
Subjective Subjective Date of Service: 10/13/23 Patient reports: no new complaints, feels better and tolerating liquids well Interval history: The patient is postop day 1 from laparoscopic sleeve gastrectomy, gastropexy and upper endoscopy. No hiatal hernia was appreciated. She is doing very well, meeting hydration goals, been out of bed walking and denies any pain, nausea, vomiting, regurgitation. She declined interpretive services today but noted in [place] that she is ready to go home. Physical Exam Vital Signs: Vital Signs: Last Vital Signs Temp 96.7 F L 10/13/23 04:00 Pulse 53 10/13/23 04:00 Resp 16 10/13/23 04:00 BP 133/74 10/13/23 04:00 Pulse Ox 93 10/12/23 23:29 O2 Del Method Room Air 10/13/23 04:00 O2 Flow Rate 3 10/12/23 11:37 BMI result Body Mass Index 36.5 On exam she is in good spirits She is nontoxic She is having no respiratory distress Abdominal exam has expected mild tenderness with no rebound, rigidity or guarding Objective Data Active Medications Famotidine (Famotidine/Pf 20 Mg/2 Ml Vial) 20 mg IVPUSH BID [facility] Last Admin: 10/12/23 19:53 Dose: 20 mg Documented By: KIRSTIE Hydromorphone HCl (Hydromorphone Hcl 0.5 Mg/0.5 Ml Syringe) 0.5 mg IVPUSH Q5M PRN; Protocol PRN Reason: Pain, Severe (Pain Scale 7-10) Hydromorphone HCl (Hydromorphone Hcl 0.5 Mg/0.5 Ml Syringe) 0.25 mg IVPUSH Q4H PRN; Protocol PRN Reason: Pain, Moderate(Pain Scale 4-6) Promethazine HCl 12.5 mg/ (Sodium Chloride) 50.5 mls @ 202 mls/hr IV ONCE PRN PRN Reason: Nausea and Vomiting Acetaminophen (Ofirmev) 1,000 mg in 100 mls @ 16.7 mls/hr IV .Q6H [facility] Last Admin: 10/13/23 01:53 Dose: 16.7 mls/hr Documented By: KIRSTIE Lactated Ringer's (Lr) 1,000 mls @ 100 mls/hr IVCONT .Q10H [facility] Last Admin: 12/12/23 06:07 Dose: 100 mls/hr Documented By: KIRSTIE Levothyroxine Sodium (Levothyroxine Sodium 125 Mcg Tablet) 125 mcg PO DAILY@0600 [facility] Last Admin: 10/13/23 05:23 Dose: 125 mcg Documented By: KIRSTIE Metoclopramide HCl (Metoclopramide Hcl 10 Mg/2 Ml Vial) 10 mg IVPUSH Q6H PRN PRN Reason: Nausea Ondansetron HCl (Ondansetron Hcl 4 Mg/2 Ml Vial) 4 mg IVPUSH Q8H PRN PRN Reason: Nausea Sodium Chloride (0.9 % Sodium Chloride Flush 3 Ml Syringe) 3 ml IVFLUSH QSHIFT [facility] Last Admin: 10/12/23 19:53 Dose: 3 ml Documented By: KIRSTIE Labs 10/13/23 06:05 10/12/23 10:15 Labs: Laboratory Results - last 24 hr 10/09/23 10/12/23 10/13/23 09:39 10:15 06:05 MCV 89.8 MCH 29.8 MCHC 33.2 RDW 11.9 Plt Count 373 MPV 9.7 Immature Gran % (Auto) 0.5 H Neut % (Auto) 84.0 H Lymph % (Auto) 9.4 L [place] % (Auto) 6.0 Eos % (Auto) 0.0 Baso % (Auto) 0.1 Lymph # (Auto) 1.3 [place] # (Auto) 0.8 Eos # (Auto) 0.0 Baso # (Auto) 0.0 Abs Immat Gran (auto) 0.07 H Absolute Neuts (auto) 11.1 H Absolute Nucleated RBC 0.000 Nucleated RBC % (auto) 0.0 Anion Gap 14 Estim Creat Clear Calc 97.5 Estimated GFR > 60 Random Glucose 141 H Calcium 9.0 Zinc 79 Procedures Date of Service Date of Service: 10/13/23 Progress Note: A&P Assessment and plan (1) S/P laparoscopic sleeve gastrectomy: Status: Acute (2) High blood triglycerides: Status: Acute (3) High cholesterol: Status: Acute (4) NAFLD (nonalcoholic fatty liver disease): Status: Acute (5) Obesity with body mass index (BMI) of 30.0 to 39.9: Status: Acute (6) Arthritis: Status: Acute (7) Morbid obesity: Status: Acute Plan Await remaining morning labs Morning hemoglobin is stable, await electrolytes, however expect the patient will need discharge criteria and Instructions regarding diet and activity reviewed. [place] instructions regarding postoperative diet were reviewed. Expect discharge later today after labs are done and posted. Time Spent With Patient Time: Total time managing care of this patient today ____ minutes. Quality Stroke Does the patient have a stroke diagnosis?: No VTE Prior VTE?: No VTE Risk Level:: Surgical - moderate VTE Device Contraindication: N/A - Device Ordered VTE Drug Contraindication: Treatment Not Indicated
[2023-10-13 07:18] LABS: Anion Gap 12 (12-20); Blood Urea Nitrogen 9 mg/dL (9-16); Calcium 9.8 mg/dL (8.4-10.2); Carbon Dioxide 27 mmol/L (22-29); Chloride 106 mmol/L (96-108); Creatinine Clr Calc Pharmacy 98.8; Estimated Glomerular Filt Rate > 60; Glucose Random 103 mg/dL (60-115); Potassium 3.5 mmol/L (3.3-5.1); Sodium 141 mmol/L (135-145)
[2023-10-13 07:37] VITALS: BP 122/56; PULSE 47; RESP 16; TEMP 36.4; O2SAT 96
--- NOTE | 2023-10-13 08:57 | HO.POSTANES ---
Post Anesthesia Evaluation Post Anesthesia Evaluation Date of Service: 10/13/23 Vital Signs: Vital Signs Temp Pulse Resp BP Pulse Ox O2 Del Method 10/13/23 07:37 97.6 F 47 L 16 122/56 L 96 Room Air 10/13/23 04:00 96.7 F L 53 16 133/74 Room Air 10/12/23 23:29 96.9 F 50 16 128/58 L 93 Room Air Anesthesia: General Endotracheal-GETA Mental Status: Awake Pain Control: Satisfactory Nausea/Vomiting: None Hydration: Adequate Anesthesia-Related Issues: No Anes. Related Issues
[2023-10-13] MEDS: Famotidine/PF 20 MG/2 ML VIAL IVPUSH (09:08)
--- NOTE | 2023-10-13 09:22 | MHC.CM.PN ---
CM MET WITH PT AT BEDSIDE. INDEPENDENT AT BASELINE. EMPLOYED F/T. NO HCP BUT WILLING TO COMPLETE. PCP DR. COLEMAN AT [facility]. DP: PT HAS BEEN MEDICALLY CLEARED FOR DC HOME, NO SERVICES. DAUGHTER WILL TRANSPORT HOME.
[2023-10-13 22:08] LABS: Vitamin A 30 mcg/dL (38-98)
[2023-10-13 22:33] LABS: Vitamin B1 17 nmol/L (8-30)
--- NOTE | 2023-10-15 09:45 | PM.EVENT ---
Event Note Date of Service: 10/15/23 Event Note: Time Spent With Patient Time: Total time managing care of this patient today ____ minutes.
== END 2023-10-13 10:48 | disposition home or self-care (01) | DRG 403 ==
LOC: HO.SSSA 09:43 → HO.S3 09:47
PROVIDERS: Physician Assistant; Admitting Provider Surgery; PCP Internal Medicine; Visit Provider Surgery
PROC: 0DB64Z3 Excision of Stomach, Percutaneous Endoscopic Approach, Vertical (ICD-10-PCS; CPT 43845; principal; 2023-10-12 07:30)
DX: E66.01 Morbid (severe) obesity due to excess calories (principal); K76.0 Fatty (change of) liver, not elsewhere classified; E03.9 Hypothyroidism, unspecified; E50.9 Vitamin A deficiency, unspecified; Z68.36 Body mass index [BMI] 36.0-36.9, adult; E78.1 Pure hyperglyceridemia; E51.9 Thiamine deficiency, unspecified; Z79.890 Hormone replacement therapy; Z79.899 Other long term (current) drug therapy
CPT/HCPCS: 36415; 80048; 80053; 80061; 82306; 82607; 82728; 83036; 83540; 84425; 84443; 84590; 84630; 85014; 85018; 85025; 85610; 85730; 86140; 86850; 86900; 86901; 88304; 88305; 88307; 88342; 99024; C9145; J0131; J0665; J0690; J1100; J1170; J2250; J2371; J2405; J2704; J3010; J7120

== ENCOUNTER → 2023-10-12 06:06 | Outpatient (BNV) | payer OTHER, SELFPAY | PROVIDERS: Admitting Provider Surgery; PCP Internal Medicine; Visit Provider Surgery | DX: E66.9 Obesity, unspecified (principal); Z68.36 Body mass index [BMI] 36.0-36.9, adult; Z90.3 Acquired absence of stomach [part of]; Z98.84 Bariatric surgery status | CPT/HCPCS: 43659; 43775; 99024 ==

== ENCOUNTER 2023-10-19 09:43 | Outpatient (AMB) | payer OTHER, SELFPAY ==
--- NOTE | 2023-10-19 10:04 | MHC.OFFVISWM ---
Intake VS Expanded 10/19/23 10:13 BP 112/69 Blood Pressure Location Rt brachial Blood Pressure Position Sitting Pulse 76 Temp 96.3 F L Temperature Source Tympanic Pulse Oximetry 94 Oxygen Delivery Method Room Air Height 5 ft 3 in Weight 192 lb 9.6 oz BMI 34.1 Body Fat % 42.2 Body Fat Mass 81.2 Fat Free Mass 111.4 Visceral Fat Rating 11.0 Body Water % 41.2 Body Water Mass 79.4 Muscle Mass/Score 105.6 Basal Metabolic Rate/Score 1,547 Intake Visit Reasons: (OV) 7 Days PO LSG 10/12/23 Allergies No Known Allergies [No Known Allergies*] Allergy (Verified 10/19/23 10:17) Medication List - Last Reconciled 10/19/23 by Carmel French PA-C levothyroxine 125 mcg PO DAILY pantoprazole 40 mg PO QAM 30 days sucralfate 10 mL PO BID 30 days HPI HPI Comments History of Present Illness Details 48 yo woman who is 7 d s/p LSG with Dr Agustin. No n/v/abd pain or reflux. 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 Present meal plan 10am - 4:1 1 scoop with 8 oz UAM -0ver 2 hours 2pm - same shake 6pm - same shake Exercise - walking around house only, daughter has gym membership and she is planning to purchase a treadmill. [facility] Medical History (Updated 10/17/23 @ 00:04 by Tim Zarate) Bradycardia Vitamin B1 deficiency Vitamin A deficiency High blood triglycerides High cholesterol Conjunctivitis Obesity with body mass index (BMI) of 30.0 to 39.9 Hypothyroid Arthritis Fatty liver Elevated cholesterol Surgical History Hx of laparoscopic partial gastrectomy Status post total knee replacement, right Hx of tubal ligation Hx of appendectomy Family History Father History of kidney surgery Mother Hypertension Asthma Sister Diabetes Social History Household Members: Significant Other Housing: House Are you a primary health care facility administrator to a significant other at home: No Do you presently have visiting nurse or other home services: No Alcohol intake: former Comment: counts correct Patient Tobacco Use Status: Never used Tobacco service: No Physical Exam Vital Signs: Last Vital Signs Pulse 76 10/19/23 10:13 BP 112/69 10/19/23 10:13 Assessment & Plan Assessment & Plan (1) S/P laparoscopic sleeve gastrectomy: Code(s): Z98.84 - Bariatric surgery status Plan: 1 week s/p LSG - doing great. Meal plan: 10 am- 4:1 2 scoops with UAM - over 2 hours 2pm - same shake 6pm - Pure portien powder 1 scoop with UAM over 2 hours Exercise - will go to gym with daughter starting tomorrow. Treadmill speed 2.8, inclien 1-3, chnage q 3 minutes, for 30 minutes. Record calories burned. OR - LS 1 mile videos - record calories burned from health tracker Text me weekly weights and calories burned on work outs. Next appt 2 weeks with me. Coding Level of Care Code Global (29875) Diagnoses S/P laparoscopic sleeve gastrectomy Z98.84
[2023-10-19 10:13] VITALS: BP 112/69; PULSE 76; TEMP 35.7; O2SAT 94; BMI 34.1
== END 2023-10-19 10:41 | disposition home or self-care (01) ==
PROVIDERS: Visit Provider Physician Assistant
DX: Z98.84 Bariatric surgery status (principal)
CPT/HCPCS: 99024

== ENCOUNTER → 2023-10-19 09:43 | Outpatient (BNVA) | payer OTHER, SELFPAY | PROVIDERS: Visit Provider Physician Assistant | DX: Z98.84 Bariatric surgery status (principal) | CPT/HCPCS: 99212 ==

== ENCOUNTER 2023-11-06 11:48 | Outpatient (AMB) | payer OTHER, SELFPAY ==
--- NOTE | 2023-11-06 11:56 | MHC.OFFVISWM ---
Intake VS Expanded 11/06/23 12:11 BP 125/62 Blood Pressure Location Rt brachial Blood Pressure Position Sitting Pulse 65 Pulse Source Pulse Oximeter Temp 96.0 F L Temperature Source Temporal Artery Scan Pulse Oximetry 98 Oxygen Delivery Method Room Air Height 5 ft 3 in Weight 180 lb BMI 31.9 Body Fat % 42.0 Body Fat Mass 75.6 Fat Free Mass 104.2 Visceral Fat Rating 10.0 Body Water % 41.3 Body Water Mass 74.2 Muscle Mass/Score 99.0 Basal Metabolic Rate/Score 1,453 Intake Visit Reasons: (OV) PO LSG 10/12/23 Allergies No Known Allergies [No Known Allergies*] Allergy (Verified 11/06/23 12:06) Medication List - Last Reconciled 11/06/23 by Carmel French PA-C levothyroxine 125 mcg PO DAILY pantoprazole 40 mg PO QAM 30 days sucralfate 10 mL PO BID 30 days HPI HPI Comments History of Present Illness Details Pt is now 3 weeks s/p LSG with DR Agustin. 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 No nausea with present meal plan - gets nauseated if uses 2 scoops at a time. TBWL is 35.9 lbs or 16.6%. Rash on back imoroved, but still there, PCP gave her a cream that helps. Meal plan:Wakes up at 5 am 6 am- 4:1 1 scoops with UAM - over 2 hours 10am - 4:1 1 scoop 2pm - 4:1 1 scoop 6pm - 4:1 1 scoop with UAM over 2 hours 8pm - Pure protein shake Exercise - Gym 3d/week - treadmill 1 mile 140 calories, speed? , incline 2.5. 30 minutes 5d/wk - LS 1 mile videos - likes it. REPLACED BY [facility] Medical History (Updated 10/17/23 @ 00:04 by Background Elliot) Bradycardia Vitamin B1 deficiency Vitamin A deficiency High blood triglycerides High cholesterol Conjunctivitis Obesity with body mass index (BMI) of 30.0 to 39.9 Hypothyroid Arthritis Fatty liver Elevated cholesterol Surgical History Hx of laparoscopic partial gastrectomy Status post total knee replacement, right Hx of tubal ligation Hx of appendectomy Family History Father History of kidney surgery Mother Hypertension Asthma Sister Diabetes Social History Household Members: Significant Other Housing: House Are you a primary healthcare recruiter to a significant other at home: No Do you presently have visiting nurse or other home services: No Alcohol intake: former Comment: counts correct Patient Tobacco Use Status: Never used Tobacco service: No Physical Exam GI Inspection: Yes incision (all completely healed) Palpation (GI): Soft to palpation, nontender, no hernias and no masses Assessment & Plan Assessment & Plan (1) S/P laparoscopic sleeve gastrectomy: Code(s): Z98.84 - Bariatric surgery status Plan: Needs 80 grams protein per day. Will try to have 2 scoops in each shake again -if it doesn't work will text me. Note written to return to wokr on light duty starting 11/09/23. 7am- 4:1 2 scoops- over 2 hours 12pm - same shake 5pm - PRemier shake -8oz UAm. Exercise - LS 3 d/ week 2miles, 2 d 1 anabella, Gym3d/ week - treadmill speed 3.0, , inline 2.5 - 250 calories Next appt 3 weeks. TV with me. Coding Level of Care Code Global (43114) Diagnoses S/P laparoscopic sleeve gastrectomy Z98.84
[2023-11-06 12:11] VITALS: BP 125/62; PULSE 65; TEMP 35.6; O2SAT 98; BMI 31.9
== END 2023-11-06 12:31 | disposition home or self-care (01) ==
PROVIDERS: Visit Provider Physician Assistant
DX: Z98.84 Bariatric surgery status (principal)
CPT/HCPCS: 99024

== ENCOUNTER → 2023-11-06 11:48 | Outpatient (BNVA) | payer OTHER, SELFPAY | PROVIDERS: Visit Provider Physician Assistant | DX: Z98.84 Bariatric surgery status (principal) | CPT/HCPCS: 99212 ==

== ENCOUNTER 2023-11-27 09:44 | Outpatient (AMB) | payer OTHER, SELFPAY ==
--- NOTE | 2023-11-27 09:49 | MHC.OFFVISWM ---
Intake VS Expanded 11/27/23 09:56 BP 118/61 Blood Pressure Location Rt brachial Blood Pressure Position Sitting Pulse 82 Pulse Source Pulse Oximeter Temp 96.2 F L Temperature Source Tympanic Pulse Oximetry 93 Oxygen Delivery Method Room Air Height 5 ft 3 in Weight 172 lb 9.6 oz BMI 30.6 Body Fat % 38.1 Body Fat Mass 65.6 Fat Free Mass 106.8 Visceral Fat Rating 9.0 Body Water % 44.0 Body Water Mass 75.8 Muscle Mass/Score 101.2 Basal Metabolic Rate/Score 1,465 Intake Visit Reasons: (OV) PO LSG 10/12/23 Allergies No Known Allergies [No Known Allergies*] Allergy (Verified 11/06/23 12:06) Medication List - Last Reconciled 11/27/23 by Carmel French PA-C levothyroxine 125 mcg PO DAILY pantoprazole 40 mg PO QAM 30 days potassium chloride 20 mEq PO DAILY sucralfate 10 mL PO BID 30 days HPI HPI Comments History of Present Illness Details 48 yo woman now 6 weeks s/p LSG by Dr 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 no n/vomiting, abd pain or reflux. Started on potassiu m daily by PCP when checked labs. No BM x 1 week - not uncomfortable. 7am - 4:1 2 scoops 8 oz UAM 12 pm - same shake 5pm - Pure protein - powder Gym - 3d/week - but not this week. treadmill- speed 3.0 , incline 2.5, foster 320 calories over 1 hour. LS 5 days per week 2 miles. [facility] Medical History (Updated 10/17/23 @ 00:04 by Tim Zarate) Bradycardia Vitamin B1 deficiency Vitamin A deficiency High blood triglycerides High cholesterol Conjunctivitis Obesity with body mass index (BMI) of 30.0 to 39.9 Hypothyroid Arthritis Fatty liver Elevated cholesterol Surgical History Hx of laparoscopic partial gastrectomy Status post total knee replacement, right Hx of tubal ligation Hx of appendectomy Family History Father History of kidney surgery Mother Hypertension Asthma Sister Diabetes Social History Household Members: Significant Other Housing: House Are you a primary nurse care manager to a significant other at home: No Do you presently have visiting nurse or other home services: No Alcohol intake: former Comment: counts correct Patient Tobacco Use Status: Never used Tobacco service: No Physical Exam Vital Signs: Last Vital Signs Temp 96.2 F L 11/27/23 09:56 Pulse 82 11/27/23 09:56 BP 118/61 11/27/23 09:56 Pulse Ox 93 11/27/23 09:56 Oxygen Delivery Method Room Air 11/27/23 09:56 BMI result Body Mass Index 30.6 Assessment & Plan Assessment & Plan (1) S/P laparoscopic sleeve gastrectomy: Code(s): Z98.84 - Bariatric surgery status Plan: Great progress with 43.3 lbs or 20% TBWL. Wants to add food now. 7am - 4:1 2 sccops 12 pm - 4:1 2 scoops 5pm - 1 scrambeld egg or 1 oz yogurt or cottage cheese 7pm- - half Pure portien shake Exercise - increase intensity. Treadmill - speed 3.1, incline 2-9 for 350 - 400 calories over 35-40 minutes LS 3 miles now Encouraged to text me weekly Next appt in 4 weeks with me. Coding Level of Care Code Global (51155) Diagnoses S/P laparoscopic sleeve gastrectomy Z98.84
[2023-11-27 09:56] VITALS: BP 118/61; PULSE 82; TEMP 35.7; O2SAT 93; BMI 30.6
== END 2023-11-27 10:23 | disposition home or self-care (01) ==
PROVIDERS: Visit Provider Physician Assistant
DX: Z98.84 Bariatric surgery status (principal)
CPT/HCPCS: 99024

== ENCOUNTER → 2023-11-27 09:44 | Outpatient (BNVA) | payer OTHER, SELFPAY | PROVIDERS: Visit Provider Physician Assistant | DX: Z98.84 Bariatric surgery status (principal) | CPT/HCPCS: 99212 ==

== ENCOUNTER 2023-12-25 08:30 | Outpatient (AMB) | payer OTHER, SELFPAY ==
--- NOTE | 2023-12-25 08:39 | MHC.OFFVISWM ---
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 No n/v , abd pain or reflux.TBWL is 52.9 lbs or 24.5%. Meal plan: 10am - 4:1 2 sccoops UAM 2pm - same shake 5pm - 2 eggs Exercise - 4d/ week - treadmill - >450 calories, speed 4.0, incline ? Weights for UE 2d/wk PFSH Medical History (Updated 12/25/23 @ 08:46 by Carmel French PA-C) Bradycardia Vitamin B1 deficiency Vitamin A deficiency High blood triglycerides High cholesterol Conjunctivitis Obesity with body mass index (BMI) of 30.0 to 39.9 Hypothyroid Arthritis Fatty liver Elevated cholesterol Surgical History Hx of laparoscopic partial gastrectomy Status post total knee replacement, right Hx of tubal ligation Hx of appendectomy Family History Father History of kidney surgery Mother Hypertension Asthma Sister Diabetes Social History Household Members: Significant Other Housing: House Are you a primary child care education coordinator to a significant other at home: No Do you presently have visiting nurse or other home services: No Alcohol intake: former Comment: counts correct Patient Tobacco Use Status: Never used Tobacco service: No Assessment & Plan Assessment & Plan (1) Overweight: Code(s): E66.3 - Overweight Plan: 9 weeks post op doing great, will change meal and exercise programs slightly. Meal plan 4:1 shakes at 10 and and 2pm 5pm -4 forks (2 oz ) of lean protein, 1 oz cooked vegetable Exercise - 4d treadmill - hill program or fat burn program 500 calories UE - 3 machines 20 lbs Abd - 2 machines 20 lbs --- 15 reps 3 sets Next appt with Harriett or (Dr Agustin if available) (2) S/P laparoscopic sleeve gastrectomy: Code(s): Z98.84 - Bariatric surgery status Plan: see above Telehealth Telehealth Location of provider rendering services: practice address Location of patient: address on file Patient Identification confirmed using: Name, : Yes Telehealth method: video Patient verbally consented to treatment: Yes Patient verbally consented to billing insurance company: Yes Patient informed of any privacy concerns related to visit: Yes Coding Level of Care Code Global (96890) Diagnoses Overweight E66.3 S/P laparoscopic sleeve gastrectomy Z98.84
[2023-12-25 08:41] VITALS: BMI 28.9
== END 2023-12-25 08:55 | disposition home or self-care (01) ==
LOC: HO.HBS 08:43
PROVIDERS: Visit Provider Physician Assistant
DX: E66.3 Overweight (principal); Z98.84 Bariatric surgery status
CPT/HCPCS: 99024

== ENCOUNTER → 2023-12-25 08:30 | Outpatient (BNVA) | payer OTHER, SELFPAY | PROVIDERS: Visit Provider Physician Assistant | DX: E66.3 Overweight (principal); Z98.84 Bariatric surgery status; Z68.28 Body mass index [BMI] 28.0-28.9, adult | CPT/HCPCS: 99212 ==

== ENCOUNTER 2024-01-18 09:16 | Outpatient (AMB) | payer OTHER, SELFPAY ==
--- NOTE | 2024-01-18 09:04 | A.OFFVIS_ITS ---
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 Presents for 3 month post op visit. Weight at last visit on 12/25/2023 was 163 pounds with a BMI of 28.9, weight today is 156 pounds, representing a 7 pound weight loss with a BMI today of 27.6.? No complaints of nausea, emesis, abdominal pain or reflux, or constipation. Present meal plan includes: 4:1 shakes at 10 and and 2pm- 2 scoops e ach 5pm- 4 forks (2 oz) of lean protein, 1 o z cooked vegetable Exercise- 4d treadmill - hill program or fat burn program 500 calories UE - 3 machines 20 lbs Abd - 2 machines 20 lbs --- 15 reps 3 sets PFSH Medical History (Updated 12/25/23 @ 08:46 by Carmel French PA-C) Bradycardia Vitamin B1 deficiency Vitamin A deficiency High blood triglycerides High cholesterol Conjunctivitis Obesity with body mass index (BMI) of 30.0 to 39.9 Hypothyroid Arthritis Fatty liver Elevated cholesterol Surgical History Hx of laparoscopic partial gastrectomy Status post total knee replacement, right Hx of tubal ligation Hx of appendectomy Family History Father History of kidney surgery Mother Hypertension Asthma Sister Diabetes Social History Household Members: Significant Other Housing: House Are you a primary neurocritical care physician to a significant other at home: No Do you presently have visiting nurse or other home services: No Alcohol intake: former Comment: counts correct Patient Tobacco Use Status: Never used Tobacco service: No Assessment & Plan Assessment & Plan (1) Overweight: Code(s): E66.3 - Overweight (2) S/P laparoscopic sleeve gastrectomy: Code(s): Z98.84 - Bariatric surgery status Plan Pt is doing very well, satisfied with current plan and getting adequate exercise. No changes made today. Course of PPI and carafate completed. RTC 6 weeks. Will text pt my contact info, encouraged her to reach out between appts with any questions or concerns. Patient is overweight and is not considered stable at this time. I spent a total of 30 minutes reviewing/updating records, examining the patient and counseling the patient on weight management as detailed above. Telehealth Telehealth Location of provider rendering services: other Location of patient: address on file Patient Identification confirmed using: Name, : Yes Telehealth method: voice only Patient verbally consented to treatment: Yes Patient verbally consented to billing insurance company: Yes Patient informed of any privacy concerns related to visit: Yes Minutes spent on Phone/Video with Pt.: 15 Coding Level of Care Code Est Pt Level 4 (17690) Diagnoses Overweight E66.3 S/P laparoscopic sleeve gastrectomy Z98.84
[2024-01-18 09:07] VITALS: BMI 27.6
== END 2024-01-18 09:30 | disposition home or self-care (01) ==
LOC: HO.HBS 09:17
PROVIDERS: Visit Provider Physician Assistant Surgical
DX: E66.3 Overweight (principal); Z68.27 Body mass index [BMI] 27.0-27.9, adult; Z90.3 Acquired absence of stomach [part of]; Z98.84 Bariatric surgery status
CPT/HCPCS: 99214

== ENCOUNTER → 2024-01-18 09:16 | Outpatient (BNVA) | payer OTHER, SELFPAY | PROVIDERS: Visit Provider Physician Assistant Surgical | DX: E66.3 Overweight (principal); Z98.84 Bariatric surgery status ==

== ENCOUNTER 2024-03-14 13:17 | Outpatient (AMB) | payer OTHER, SELFPAY ==
--- NOTE | 2024-03-14 13:03 | MHC.OFFVISWM ---
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 Presents for 6 month post op visit. Weight at last visit on 01/18/2024 was 156 pounds with a BMI of 27.6, weight today is 152 pounds, representing a 4 pound weight loss with a BMI today of 26.9.? No complaints of nausea, emesis, abdominal pain or reflux, or constipation. Present meal plan includes: 4:1 shakes at 10am and 2pm- 2 scoops each 5pm- 4 forks (2 oz) of lean protein, 1 oz cooked vegetable Exercise- 4d treadmill - hill program or fat burn program 500 calories UE - 3 machines 20 lbs Abd - 2 machines 20 lbs --- 15 reps 3 sets PFSH Medical History (Updated 12/25/23 @ 08:46 by Carmel French PA-C) Bradycardia Vitamin B1 deficiency Vitamin A deficiency High blood triglycerides High cholesterol Conjunctivitis Obesity with body mass index (BMI) of 30.0 to 39.9 Hypothyroid Arthritis Fatty liver Elevated cholesterol Surgical History Hx of laparoscopic partial gastrectomy Status post total knee replacement, right Hx of tubal ligation Hx of appendectomy Family History Father History of kidney surgery Mother Hypertension Asthma Sister Diabetes Social History Household Members: Significant Other Housing: House Are you a primary daycare director to a significant other at home: No Do you presently have visiting nurse or other home services: No Alcohol intake: former Comment: counts correct Patient Tobacco Use Status: Never used Tobacco service: No Telehealth Telehealth Telehealth Platform: Telephone Location of provider rendering services: practice address Location of patient: address on file Patient Identification confirmed using: Name, : Yes Telehealth method: voice only Patient verbally consented to treatment: Yes Patient verbally consented to billing insurance company: Yes Patient informed of any privacy concerns related to visit: Yes Minutes spent on Phone/Video with Pt.: 15 Assessment & Plan Assessment & Plan (1) Overweight: Code(s): E66.3 - Overweight Category: Medical (2) S/P laparoscopic sleeve gastrectomy: Code(s): Z98.84 - Bariatric surgery status Category: Medical Plan Pt feels relatively comfortable at current weight. Has the option to add 1 serving healthy fat or 1 oz complex carb like sweet potato to evening meal. Labs ordered. RTC 3 months. Encouraged pt to reach out via text between appts with any concerns. Patient is overweight and is not considered stable at this time. I spent a total of 30 minutes reviewing/updating records, examining the patient and counseling the patient on weight management as detailed above. Orders: Orders Complete Blood Count Auto Diff Today E66.3 - Overweight, Z98.84 - Bariatric surgery status Lipid Panel Today E66.3 - Overweight, Z98.84 - Bariatric surgery status IRON PROFILE Today E66.3 - Overweight, Z98.84 - Bariatric surgery status Vitamin B12 and Folate Today E66.3 - Overweight, Z98.84 - Bariatric surgery status Zinc Today E66.3 - Overweight, Z98.84 - Bariatric surgery status Vitamin B1 Today E66.3 - Overweight, Z98.84 - Bariatric surgery status Vitamin A Today E66.3 - Overweight, Z98.84 - Bariatric surgery status TSH reflex Free T4 Today E66.3 - Overweight, Z98.84 - Bariatric surgery status Ferritin Today E66.3 - Overweight, Z98.84 - Bariatric surgery status Vitamin D 25-OH Total Today E66.3 - Overweight, Z98.84 - Bariatric surgery status Insulin Today E66.3 - Overweight, Z98.84 - Bariatric surgery status Hemoglobin A1c Today E66.3 - Overweight, Z98.84 - Bariatric surgery status Comprehensive Met. Panel Today E66.3 - Overweight, Z98.84 - Bariatric surgery status C Reactive Protein Today E66.3 - Overweight, Z98.84 - Bariatric surgery status
[2024-03-14 13:13] VITALS: BMI 26.9
== END 2024-03-14 13:21 | disposition home or self-care (01) ==
LOC: HO.HBS 13:17
PROVIDERS: Visit Provider Physician Assistant Surgical
DX: E66.3 Overweight (principal); Z98.84 Bariatric surgery status
CPT/HCPCS: 99214

== ENCOUNTER → 2024-03-14 13:17 | Outpatient (BNVA) | payer OTHER, SELFPAY | PROVIDERS: Visit Provider Physician Assistant Surgical ==